=== PATIENT | female | born 1975 | race Caucasian/White ===

== ENCOUNTER 2016-08-28 12:14 | Inpatient (IN) | payer OTHER ==
[~2016-08-28] VITALS: Ht 160 cm; Wt 72.5 kg
[~2016-08-28 12:14] MED LIST: LISI20TA11 PO; POTA20TA96 PO; PRED5 PO; TACR1CAP26 PO
[2016-08-28 12:18] VITALS: Ht 160 cm; Wt 72.5 kg
[2016-08-28] MEDS ORDERED: SODIUM CHLORIDE 0.9% 1L BAG IV* STA (12:31)
[2016-08-28] MEDS ORDERED: CEFEPIME 2GM/50 ML (PMX) 50 ML IVPB STA (12:31)
[2016-08-28] MEDS ORDERED: VANCOMYCIN 1 GM (PMX) 250 ML IVPB ONE (13:00)
[2016-08-28 13:08] LABS: HEMATOCRIT 34.2 % (37.0-47.0); HEMOGLOBIN 11.5 g/dl (12.0-16.0); MEAN CORPUSCULAR HEMOGLOBIN 29.1 pg (29.0-33.0); MEAN CORPUSCULAR HGB CONC 33.7 g/dl (32.0-37.0); MEAN CORPUSCULAR VOLUME 86.4 fl (82.0-101.0); MEAN PLATELET VOLUME 7.8 fl (7.4-10.4); PLATELET COUNT 421 10^3/UL (140-440); RED BLOOD COUNT 3.96 10^6/ul (4.20-5.40); UNCORRECTED WBC 3.9 10^3/ul (4.8-10.8); WHITE BLOOD COUNT 3.9 10^3/ul (4.8-10.8)
[2016-08-28 13:10] LABS: CONDITION 1; LH ANALYZER COMMENTS 1; SUSPECT 1
[2016-08-28 13:18] LABS: INR 0.91; PROTIME 12.2 Sec (12.2-14.2)
[2016-08-28 13:19] LABS: CHLORIDE 99 mmol/L (97-110); PARTIAL THROMBOPLASTIN TIME 31.1 Sec (25.0-35.0)
[2016-08-28 13:20] LABS: ALBUMIN 4.3 g/dl (3.3-4.9); POTASSIUM 3.6 mmol/L (3.5-5.1); SODIUM 144 mmol/L (135-144)
[2016-08-28 13:23] LABS: ALANINE AMINOTRANSFERASE 51 IU/L (13-69); ALBUMIN/GLOBULIN RATIO 0.95; ALKALINE PHOSPHATASE 83 IU/L (42-121); ANION GAP 18 (8-16); ASPARTATE AMINO TRANSFERASE 41 IU/L (15-46); BLOOD UREA NITROGEN 11 mg/dl (7-20); CALCIUM 9.5 mg/dl (8.4-10.2); CARBON DIOXIDE 31 mmol/L (21-31); CREATININE 0.61 mg/dl (0.44-1.00); GLUCOSE 93 mg/dl (70-220); TOTAL PROTEIN 8.8 g/dl (6.1-8.1)
[2016-08-28 13:25] LABS: BILIRUBIN,INDIRECT 0.2 mg/dl (0-1.1); BILIRUBIN,TOTAL 0.2 mg/dl (0.2-1.3)
--- NOTE | 2016-08-28 13:25 | RADRPT ---
PROCEDURE: XR Chest AP portable CLINICAL INDICATION: Possible sepsis TECHNIQUE: An AP portable radiograph of the chest was submitted. COMPARISON: None. FINDINGS: Support Hardware: A left subclavian Port-A-Cath is evident with the tip projecting through the right atrium. Cardiovascular: The cardiovascular silhouette appears unremarkable. Lung Dean: The lung dean appear clear with no nodule, alveolar infiltrate, for a interstitial pr ominence evident. Pleural Spaces: No pneumothorax or pleural effusion is identified. Osseous Structures: The osseous structures appear intact. Soft Tissues: The soft tissues appear unremarkable. IMPRESSION: 1. A left subclavian Port-A-Cath is evident with the tip projecting to the right atrium. 2. Otherwise, unremarkable portable chest. Physician Miguel Date Time Electronically viewed and signed by Physician Miguel on 08/28/2016 13:25 /
[2016-08-28 13:36] LABS: TROPONIN-I < 0.012 ng/ml (0.00-0.12)
[2016-08-28 13:41] LABS: LYMPHOCYTES # 1.2 10^3/ul (0.8-2.9); MONOCYTE # 0.1 10^3/ul (0.3-0.9); NEUTROPHIL # 1.9 10^3/ul (1.6-7.5)
[2016-08-28 13:42] LABS: MYELOCYTES # 0.1
[2016-08-28] MEDS ORDERED: CEPH750C6 PO (13:53)
[2016-08-28] MEDS ORDERED: ONDANSETRON 4 MG INJ IV PRN ×2 (14:30→16:00)
[2016-08-28] MEDS ORDERED: ACETAMINOPHEN 325 MG TAB PO PRN ×2 (14:30→16:00)
[2016-08-28 15:45] VITALS: TEMP 98.1
[2016-08-28 15:48] LABS: ADD UMIC YES; URINE BILIRUBIN (Dip) NEGATIVE (NEGATIVE); URINE BLOOD (Dip) 3+ (NEGATIVE); URINE GLUCOSE (Dip) NEGATIVE (NEGATIVE); URINE KETONES (Dip) NEGATIVE (NEGATIVE); URINE LEUKOCYTE ESTERASE (Dip) NEGATIVE (NEGATIVE); URINE NITRITE (Dip) NEGATIVE (NEGATIVE); URINE TOTAL PROTEIN (Dip) NEGATIVE (NEGATIVE); URINE UROBILINOGEN (Dip) 0.2 E.U./dL (0.1-1.0)
[2016-08-28] MEDS ORDERED: morphine 2 MG INJ IV PRN (16:00)
[2016-08-28] MEDS ORDERED: DOCUSATE SODIUM 100 MG CAP PO PRN (16:00)
[2016-08-28] MEDS ORDERED: ACETAMINOPHEN 650 MG SUPP PR PRN (16:00)
[2016-08-28] MEDS ORDERED: HYDROCODONE/APAP (5/325) TAB PO PRN (16:00)
[2016-08-28] MEDS ORDERED: NACL 0.9% 3 ML SYG IV SCH (16:00)
[2016-08-28] MEDS ORDERED: MAGNESIUM HYDROXIDE 30ML CUP PO PRN (16:00)
[2016-08-28] MEDS ORDERED: BISACODYL 10 MG SUPP PR PRN (16:00)
[2016-08-28 16:02] LABS: URINE COLOR PINK (YELLOW)
[2016-08-28 16:03] LABS: BACTERIA,URINE MODERATE; SQUAMOUS EPITHELIAL CELL,UR MODERATE; URINE RBCS >50 /HPF (0)
--- NOTE | 2016-08-28 16:35 | HP ---
DATE OF ADMISSION: 08/28/2016 CHIEF COMPLAINT: Left upper chest Port-A-Cath infection. HISTORY OF PRESENT ILLNESS: This is a 41-year-old female with recently diagnosed right breast cance r in June of 2016, who was receiving chemotherapy and does see her oncologist, Dr. Villalobos as outpatient, who came to [facility] due to her left side chest Port-A-Cath. The p atient of note also has a history of lupus. The patient did state that she noticed some erythema an d swelling on her left upper chest 2 weeks ago. She did state that however, it got worse, and that about a week ago it started to have drainage with pus. This morning, she noticed that there was trevor inage as well as a hole in her left upper chest which prompted her to come to [facility] for further evaluation. On further examination, patient was seen with an infected left upper chest area with a notable sized laceration, roughly 1 inch in length. There was dried whitish to y ellow pus seen in the area as well with erythema around markings. No white count was noted, however , patient did report having subjective fevers and chills while she was at home with highest temp marylu ng at 102. She denied any other chest pain or shortness of breath or nausea or vomiting associated with it. She does feel some pain on palpation on the area, however. Currently, the patient remains afebrile. She remains normotensive with no evidence of shock. We will evaluate her for the aforem entioned issues. MEDICAL/SURGICAL HISTORY: 1. Right breast cancer. 2. Lupus. SOCIAL HISTORY: The patient denies any cigarette smoking, alcohol consumption or illicit drug use. ALLERGIES: NO KNOWN ALLERGIES. FAMILY HISTORY: Patient does report her mother had breast cancer. REVIEW OF SYSTEMS: A 12-point review of systems obtained and entirely negative except that mentione d in history of present illness. PHYSICAL EXAMINATION: VITAL SIGNS: Temperature is 97.1, pulse 76, respiratory rate 18, blood pressure 97/71 and pulse oxi metry 99% on room air. GENERAL: This is a 41-year-old female, appears stated age with no apparent distress noted. EYES: Pupils equal, round and reactive to light. Anicteric sclerae. NECK: Supple, nontender. No JVD. CARDIAC: S1, S2 auscultated, regular rate. PULMONARY: Clear to auscultation bilaterally. No wheezing or rhonchi. ABDOMEN: Soft, nontender, nondistended. EXTREMITIES: There is no pitting edema bilateral lower extremities. SKIN: There is noted left upper chest wound on site where Port-A-Cath was with noted dryish yellow to white pus seen around area with roughly 1 inch laceration seen in the area. NEUROLOGIC: Alert and oriented x3. LABORATORY DATA: WBC 2.9, hemoglobin 11.5, hematocrit is 34.2, platelets are 421. Sodium 144, pota ssium 3.6, BUN is 11, creatinine 0.61. IMAGING: Chest x-ray done on 08/28/2016 did show left subclavian Port-A-Cath evident with the tip p rojecting into the right atrium, otherwise unremarkable portable chest. IMPRESSION AND PLAN: 1. Infected left subclavian Port-A-Cath. I will get wound consult to follow. Radiology has been m raymond aware. After discussion, patient will need to have ID consult and need any infectious process d ealt with prior to reinsertion of a new Port-A-Cath. Will continue on broad spectrum antibiotics fo r now. Will await ID consultation. 2. History of breast cancer. Patient does report she follows up with Dr. Villalobos as outpatient. Patient reports after next chemotherapy session on 09/02/2016 patient to follow up with outpatient oncologist. 3. History of lupus. The patient does report that she follows up with a snack bar attendant, Dr. Glass as outpatient. No active issue at this time. Will resume her prednisone. 4. Deep venous thrombosis prophylaxis: SCDs. ADMISSION PROCESS TIME: 40 minutes. Discussed plan of care with Dr. Mujica. Dictated By: MUKUND DORSEY DIGITAL COURT REPORTER for WAGNER MUJICA MD RR/NTS Conf#: [id number] DID#: [id number]
[2016-08-28] MEDS: CEFTRIAXONE 2 GM/50 ML (PMX) 50 ML IVPB SCH ×2 (17:00→20:30)
--- NOTE | 2016-08-28 17:20 | ERA ---
ER Documentation Chief Complaint Date/Time DATE: 08/28/16 TIME: 17:18 Chief Complaint left upper chest pain from port a cath. not infusing per pt. needs chemo HPI Patient is a 41-year-old female with lupus and breast cancer who presents with an infection. She says that she has an infected port in her left chest wall. She has had chills and fevers. She has had this for the past 1.5 weeks. She is on chemotherapy for her breast cancer. She does not receive radiation. Her next chemotherapy is on September 02. Her last chemotherapy was August 12. She does not know the name of her primary doctor. ROS All systems reviewed and are negative except as per history of present illness. Medications Home Meds Reported Medications Cephalexin* (Cephalexin*) 750 Mg Capsule, 750 MG PO BID for 10 Days, #21 CAP 08/28/16 Potassium Chloride* (Potassium Chloride*) 20 Meq Tablet.er, 40 MEQ PO DAILY, TAB.SA 07/15/16 Tacrolimus* (Prograf*) 1 Mg Capsule, 1 MG PO Q12, CAP 07/15/16 Prednisone* (Prednisone*) 5 Mg Tab, 5 MG PO DAILY, TAB 07/15/16 Discontinued Reported Medications Lisinopril* (Lisinopril*) 20 Mg Tablet, 20 MG PO DAILY, #30 TAB 07/15/16 Allergies Allergies: Coded Allergies: No Known Allergy (Unverified , 07/15/16) PMhx/Soc History of Surgery: Yes (RT BREAST BX) Anesthesia Reaction: No Hx Neurological Disorder: No Hx Respiratory Disorders: No Hx Cardiac Disorders: No Hx Psychiatric Problems: No Hx Miscellaneous Medical Probl: Yes (LUPUS) Hx Alcohol Use: No Hx Substance Use: No Hx Tobacco Use: No Smoking Status: Never smoker FmHx Family History: diabetes Physical Exam Vitals Vital Signs Date Time Temp Pulse Resp B/P Pulse Ox O2 Delivery O2 Flow Rate FiO2 08/28/16 13:54 96 18 97/71 99 Room Air 08/28/16 12:45 Nasal Cannula 2 08/28/16 12:18 97.1 75 20 113/74 98 Physical Exam Const: No acute distress Head: Atraumatic Eyes: Normal Conjunctiva ENT: Normal External Ears, Nose and Mouth. Neck: Full range of motion..~ No meningismus. Resp: Clear to auscultation bilaterally Cardio: Regular rate and rhythm, no murmurs Abd: Soft, non tender, non distended. Normal bowel sounds Skin: Erosion of the skin over the port with redness surrounding consistent with infection Back: No midline or flank tenderness Ext: No cyanosis, or edema Neur: Awake and alert Psych: Normal Mood and Affect Result Diagram: 08/28/16 1250 08/28/16 1240 Results 24 hrs Laboratory Tests Test 08/28/16 12:40 08/28/16 12:50 08/28/16 15:00 08/28/16 16:05 Activated Partial Thromboplast Time 31.1Sec Alanine Aminotransferase (ALT/SGPT) 51IU/L Albumin 4.3g/dl Albumin/Globulin Ratio 0.95 Alkaline Phosphatase 83IU/L Anion Gap 18 Aspartate Amino Transf (AST/SGOT) 41IU/L Blood Urea Nitrogen 11mg/dl Calcium Level 9.5mg/dl Carbon Dioxide Level 31mmol/L Chloride Level 99mmol/L Creatinine 0.61mg/dl Direct Bilirubin 0.00mg/dl Globulin 4.50g/dl Glucose Level 93mg/dl INR International Normalized Ratio 0.91 Indirect Bilirubin 0.2mg/dl Lactic Acid Level 1.1mmol/L 0.6mmol/L Potassium Level 3.6mmol/L Prothrombin Time 12.2Sec Prothrombin Time Ratio 1.0 Sodium Level 144mmol/L Total Bilirubin 0.2mg/dl Total Protein 8.8g/dl Troponin I < 0.012ng/ml Band Neutrophils % 12.0% Basophils # 0.010^3/ul Basophils % 1.0% Differential Comment MANUAL DIFF Eosinophils # 0.010^3/ul Eosinophils % 1.0% Hematocrit 34.2% Hemoglobin 11.5g/dl Lymphocytes # 1.210^3/ul Lymphocytes % 30.0% Mean Corpuscular Hemoglobin 29.1pg Mean Corpuscular Hemoglobin Concent 33.7g/dl Mean Corpuscular Volume 86.4fl Mean Platelet Volume 7.8fl Metamyelocytes # 0.0 Metamyelocytes % 1.0% Monocytes # 0.110^3/ul Monocytes % 2.0% Myelocytes # 0.1 Myelocytes % 2.0% Neutrophils # 1.910^3/ul Neutrophils % 48.0% Nucleated Red Blood Cells # 10^3/ul Nucleated Red Blood Cells % /100WBC Platelet Count 48083^3/UL Promyelocytes # 0.1 Promyelocytes % 3.0% Red Blood Count 3.9610^6/ul Red Cell Distribution Width 13.0% White Blood Count 3.910^3/ul Urine Bacteria MODERATE Urine Bilirubin NEGATIVE Urine Clarity HAZY Urine Color PINK Urine Glucose NEGATIVE% Urine Hemoglobin 3+ Urine Ketones NEGATIVE Urine Leukocyte Esterase NEGATIVE Urine Microscopic RBC >50/HPF Urine Microscopic WBC 2-5/HPF Urine Nitrite NEGATIVE Urine Specific [place] 1.010 Urine Squamous Epithelial Cells MODERATE Urine Total Protein NEGATIVE Urine Urobilinogen 0.2 E.U./dL Urine pH 7.0 Current Medications Medications (Trade) Dose Ordered Sig/Dom Route PRN Reason Start Time Stop Time Status Last Admin Dose Admin Sodium Chloride 2250 ml 2,250 ml BOLUS OVER 2 HOURS STAT IV* 08/28/16 12:31 08/28/16 12:33 DC 08/28/16 13:24 Cefepime HCl 50 ml @ 100 mls/hr ONCE STAT IVPB 08/28/16 12:31 08/28/16 13:00 DC 08/28/16 13:22 Vancomycin HCl (Vancocin) 250 ml @ 125 mls/hr ONCE ONCE IVPB 08/28/16 13:00 08/28/16 14:59 08/28/16 13:26 Ondansetron HCl (Zofran Inj) 4 mg BRIDGE ORDER PRN IV NAUSEA AND/OR VOMITING 08/28/16 14:30 08/28/16 16:07 DC Acetaminophen (Tylenol Tab) 650 mg ER BRIDGE PRN PO MILD PAIN/FEVER 08/28/16 14:30 08/28/16 16:07 DC IV Flush (NS 3 ml) 3 ml PER PROTOCOL IV 08/28/16 16:00 Ondansetron HCl (Zofran Inj) 4 mg Q6H PRN IV NAUSEA AND/OR VOMITING 08/28/16 16:00 Acetaminophen (Tylenol Tab) 650 mg Q6H PRN PO PAIN LEVEL 1-3 OR FEVER 08/28/16 16:00 Acetaminophen (Tylenol Supp) 650 mg Q6H PRN ID PAIN LEVEL 1-3 OR FEVER 08/28/16 16:00 Acetaminophen/ Hydrocodone Bitart ([place] (5/325)) 1 tab Q6H PRN PO MODERATE PAIN LEVEL 4-6 08/28/16 16:00 Acetaminophen/ Hydrocodone Bitart ([place] (5/325)) 2 tab Q6H PRN PO SEVERE PAIN LEVEL 7-10 08/28/16 16:00 Morphine Sulfate (morphine) 2 mg Q4H PRN IV SEVERE PAIN LEVEL 7-10 08/28/16 16:00 Docusate Sodium (Colace) 100 mg Q12H PRN PO CONSTIPATION 08/28/16 16:00 Magnesium Hydroxide (Milk Of Mag) 30 ml DAILY PRN PO CONSTIPATION 08/28/16 16:00 Bisacodyl (Dulcolax Supp) 10 mg DAILY PRN ID CONSTIPATION 08/28/16 16:00 Famotidine (Pepcid) 20 mg Q12 PO 08/28/16 21:00 Prednisone (Prednisone) 5 mg DAILY PO 08/29/16 09:00 Tacrolimus 1 mg 1 mg Q12 PO 08/28/16 21:00 Ceftriaxone Sodium (Rocephin) 50 ml @ 100 mls/hr Q24H IVPB 08/28/16 17:00 Procedures/MDM EKG read by me: Rate/Rhythm: Regular rate and rhythm at a normal rate Intervals: Normal Impression: No evidence of ischemia or arrhythmia Chest x-ray shows no pneumonia per radiology. Admit MDM: Patient's infectious symptoms have not stabilized and the patient is at risk of rapid decompensation. The patient will be admitted for careful hydration, antibiotic therapy, and infectious source control. Severe Sepsis criteria: Infectious source: Infected port End organ damage indicated by: No end organ damage at this time Sepsis Management: Time of recognition of sepsis: Upon arrival Within 3 hours of recognition: Blood cultures x 2 before broad-spectrum antibiotics: Yes 30 ml/kg NS bolus Completed Initial lactate 1.1 Repeat lactate 0.6 Time of recognition of septic shock: No septic shock Septic Shock Assessment: Any lactic acid > 4.0 No Persistent hypotension (SBP < 90 or 40 mmHg drop, MAP < 65) despite 30 mL/kg IV fluid bolus No Volume Re-assessment for Septic Shock (post 30 ml/kg bolus): No septic shock at this time Persistent Hypotension Treatment: Comfort care No Central line Not Required Vasopressor started Not required I considered further perfusion assessment with CVP measurement, SCVO2, bedside ultrasound volume assessment, passive leg raise, trial of further fluid bolus. And proceeded with 30 ml/kg fluid bolus of NSS, broad spectrum antibiotics, and admission. I also spoke with Dr. Brewster and asked him to remove the infected port. Accepting Care Team Current data and ongoing care discussed. Admitting Physician: Dr. Mujica Receiver Stocker(s): Dr. Brewster Outstanding Data: Culture results Critical Care: Critical care time 35 minutes excluding all billable procedures Emergent fluid management while maintaining close respiratory support. Provision of immediate and broad-spectrum antibiotic therapy. Simultaneous assessment for possible sources in order to direct targeted therapy. Consideration for invasive and chemical support to prevent cardiopulmonary collapse. Departure Diagnosis: Primary Impression: Sepsis Qualified Code: A41.9 - Sepsis, due to unspecified organism Additional Impressions: Catheter-related bloodstream infection Qualified Code: T80.211A - Catheter-related bloodstream infection, initial encounter Leukopenia Qualified Code: D70.9 - Neutropenia, unspecified type Anemia Qualified Code: D64.9 - Anemia, unspecified type Bandemia Condition: JAQUELIN Maza MD Aug 28, 2016 17:20
--- NOTE | 2016-08-28 17:35 | CONS ---
DATE OF ADMISSION: 08/28/2016 DATE OF CONSULTATION: 08/28/2016 TYPE OF CONSULTATION: Infectious Disease. REASON FOR CONSULTATION: Antibiotic management. HISTORY OF PRESENT ILLNESS: Niya Lund is a pleasant 41-year-old [place] Citizen Of [place] female with a number of problems who comes in with infected left upper chest Port-A-Cath. Her problems include: 1. History of systemic lupus erythematosus. 2. Recently diagnosed breast cancer in June 2016. She had a Port-A-Cath placed in the left upp er chest and is receiving chemotherapy from Dr. Villalobos as an outpatient. She came to the emerge ncy room with left-sided chest pain and with redness of the area of the Port-A-Cath. She noticed so me erythema and swelling of left upper chest about 2 weeks ago. It got worse, however, and started to drain pus about a week ago. She noticed that there was some drainage as well as a hole in the le ft chest which prompted her to come to the emergency room at [facility]. She had a notable size laceration, roughly 1 inch in length. It was dried, white to yellow pus in the area with eryt linda. On admission, her white count was 3.9, H and H 11.5 and 34.2, platelet count of 421,000. BUN and creatinine 11/0.61. Chest x-ray, left subclavian Port-A-Cath is evident with the tip projectin g to the right atrium, otherwise unremarkable. PAST MEDICAL HISTORY: Operations as outlined. FAMILY HISTORY: Noncontributory. SOCIAL HISTORY: She does not smoke, drink, or abuse drugs. FAMILY HISTORY: Her mother had breast cancer as well. ALLERGIES: NONE TO PENICILLIN, SULFA, OR FOODS. MEDICATIONS: Include 1. Gabapentin. 2. Prednisone. 3. Plaquenil for her lupus. PHYSICAL EXAMINATION: GENERAL: The patient is a well-developed, well-nourished 41-year-old female, who is alert, responsi ve, in no acute distress. VITAL SIGNS: Stable. She is afebrile. SKIN: Left upper chest wound on the site where the Port-A-Cath was placed. HEENT: Within normal limits. NECK: Supple. LYMPH NODES: None palpable. CHEST: Decreased breath sounds at the bases. HEART: Without murmur or gallop. ABDOMEN: Soft, nontender, without organosplenomegaly, no masses. EXTREMITIES: Without cyanosis, clubbing, or edema. RECTAL AND GENITAL: Deferred. NEUROLOGIC: No focal neurological abnormalities. ANCILLARY LABORATORY DATA: White count was 2.9, H and H 11.5 and 34.2, platelet count 421,000. BUN and creatinine 11/0.61. IMPRESSION AND PLAN: The patient has an infected left subclavian Port-A-Cath. She needs blood cult ures which were done, and she was begun on ceftriaxone and vancomycin. She is also on Prograf 1 mg q. 12. Blood cultures have been drawn. C. difficile toxin has been ordered. Stool culture and uri ne cultures have been ordered, so she is essentially covered, and she will have her Port-A-Cath dashawn dionte I believe by Dr. Brewster and then replaced at a later time when she needs chemotherapy. I want to thank the hospitalist for asking me to see this aishwarya lady in consultation. Dictated By: DEMETRI SZYMANSKI MD, JD/ANTWON Conf#: [id number] DID#: [id number]
[2016-08-28 19:41] VITALS: BP 103/57; RESP 20
[2016-08-28] MEDS: FAMOTIDINE 20 MG TAB PO SCH (22:50)
[2016-08-28] MEDS: TACROLIMUS 1 MG CAP PO SCH (22:50)
[2016-08-29] VITALS (11 sets, daily range): BP systolic 93–127; BP diastolic 54–71; PULSE 66–99; RESP 16–20
[2016-08-29 07:34] LABS: CREATININE 0.57 mg/dl (0.44-1.00)
[2016-08-29 07:35] LABS: ALBUMIN/GLOBULIN RATIO 0.9; BILIRUBIN,INDIRECT 0.1 mg/dl (0-1.1); BILIRUBIN,TOTAL 0.1 mg/dl (0.2-1.3); CALCIUM 8.4 mg/dl (8.4-10.2); PHOSPHORUS 3.9 mg/dl (2.5-4.9); T3 UPTAKE 31.9 % (23.5-40.5); TOTAL PROTEIN 6.3 g/dl (6.1-8.1)
[2016-08-29 07:36] LABS: MAGNESIUM 2.1 mg/dl (1.7-2.5)
[2016-08-29 07:49] LABS: POTASSIUM 3.5 mmol/L (3.5-5.1)
[2016-08-29 09:26] LABS: THYROID STIMULATING HORMONE 1.09 MIU/L (0.465-4.680)
[2016-08-29] MEDS: TACROLIMUS 1 MG CAP PO SCH ×2 (09:26→20:30)
[2016-08-29] MEDS: FAMOTIDINE 20 MG TAB PO SCH ×2 (09:26→20:30)
[2016-08-29] MEDS: predniSONE 5 MG TAB PO SCH (09:26)
[2016-08-29] MEDS ORDERED: MIDAZOLAM 1 MG/ML 2 ML INJ ONE (13:42)
[2016-08-29] MEDS ORDERED: LIDOCAINE 1% (MDV) 20 ML INJ ONE (13:42)
[2016-08-29] MEDS ORDERED: FENTAnyl 50 MCG/ML VIAL ONE (13:42)
--- NOTE | 2016-08-29 14:33 | PN ---
Date/Time of Note Date/Time of Note DATE: 08/29/16 TIME: 14:30 Assessment/Plan VTE Prophylaxis VTE Prophylaxis Intervention: SCD's Lines/Catheters IV [facility] Saline Lock Urinary Cath still in place: No Assessment/Plan Chief Complaint/Hosp Course Assessment and plan 1. Infected left subclavian Port-A-Cath. Wound care nurse to follow.. Radiology has been made aware. Continue antibiotics per ID. Await blood cultures.. 2. History of breast cancer. Patient does report she follows up with Dr. Villalobos as outpatient. Patient reports after next chemotherapy session on patient to follow up with outpatient oncologist. 3. History of lupus. The patient does report that she follows up with a ship construction teacher, Dr. Glass as outpatient. No active issue at this time. Will resume her prednisone. 4. Deep venous thrombosis prophylaxis: SCDs. Disposition and plan: Tentative plan for removal of infected Port-A-Cath on left upper chest. Continue inpatient monitoring Discussed plan of care with Dr. Mujica Problems: Subjective 24 Hr Interval Summary Free Text/Dictation No apparent distress noted at this time. Exam/Review of Systems Vital Signs Vitals Vital Signs Date Time Temp Pulse Resp B/P Pulse Ox O2 Delivery O2 Flow Rate FiO2 08/29/16 07:37 97.9 80 16 93/54 100 08/28/16 15:45 Room Air 08/28/16 12:45 2 Intake and Output 08/28/16 08/28/16 08/29/16 15:00 23:00 07:00 Intake Total 50 ml 400 ml Balance 50 ml 400 ml Exam General: No acute signs or symptoms of distress Eyes: pupils equal round, Anicteric sclera Neck: Supple nontender, no JVD Cardiac: S1, S2 auscultated, regular rhythm and rate Pulmonary: No coarse rhonchi or breathing auscultated GI: Abdomen soft nontender nondistended, bowel sounds active Extremities: No edema bilateral lower extremities Skin: Noted with infected left upper chest Port-A-Cath site Neurologic: Alert to person place and time and situation Results Result Diagram: 08/28/16 1250 08/29/16 0500 Results 24 hrs Laboratory Tests Test 08/28/16 15:00 08/28/16 16:05 08/28/16 19:25 08/29/16 05:00 Urine Bacteria MODERATE Urine Bilirubin NEGATIVE Urine Clarity HAZY Urine Color PINK Urine Glucose NEGATIVE Urine Hemoglobin 3+ H Urine Ketones NEGATIVE Urine Leukocyte Esterase NEGATIVE Urine Microscopic RBC >50 Urine Microscopic WBC 2-5 Urine Nitrite NEGATIVE Urine Specific [place] 1.010 Urine Squamous Epithelial Cells MODERATE Urine Total Protein NEGATIVE Urine Urobilinogen 0.2 E.U./dL Urine pH 7.0 Lactic Acid Level 0.6 < 0.5 L Alanine Aminotransferase (ALT/SGPT) 42 Albumin 3.0 #L Albumin/Globulin Ratio 0.90 Alkaline Phosphatase 64 Anion Gap 15 Aspartate Amino Transf (AST/SGOT) 27 Blood Urea Nitrogen 8 Calcium Level 8.4 Carbon Dioxide Level 25 Chloride Level 107 Cholesterol Level 191 Cholesterol/HDL Ratio 9.0 Creatinine 0.57 Direct Bilirubin 0.00 Free Thyroxine Index 2.87 Globulin 3.30 H Glucose Level 82 HDL Cholesterol 21 L Hemoglobin A1c 5.9 Indirect Bilirubin 0.1 LDL Cholesterol, Calculated 140 Magnesium Level 2.1 Phosphorus Level 3.9 Potassium Level 3.5 Sodium Level 143 Thyroid Stimulating Hormone (TSH) 1.090 Thyroxine (T4) 9.0 Total Bilirubin 0.1 L Total Protein 6.3 # Triglycerides Level 152 H Triiodothyronine (T3) Uptake 31.9 Medications Medications Current Medications Ondansetron HCl (Zofran Inj) 4 mg Q6H PRN IV NAUSEA AND/OR VOMITING; Start at 16:00 Acetaminophen (Tylenol Tab) 650 mg Q6H PRN PO PAIN LEVEL 1-3 OR FEVER; Start at 16:00 Acetaminophen (Tylenol Supp) 650 mg Q6H PRN [place] PAIN LEVEL 1-3 OR FEVER; Start 08/28/16 at 16:00 Acetaminophen/ Hydrocodone Bitart ([place] (5/325)) 1 tab Q6H PRN PO MODERATE PAIN LEVEL 4-6; Start 08/28/16 at 16:00 Acetaminophen/ Hydrocodone Bitart ([place] (5/325)) 2 tab Q6H PRN PO SEVERE PAIN LEVEL 7-10; Start 08/28/16 at 16:00 Morphine Sulfate (morphine) 2 mg Q4H PRN IV SEVERE PAIN LEVEL 7-10; Start 08/28 at 16:00 Docusate Sodium (Colace) 100 mg Q12H PRN PO CONSTIPATION; Start 1/20/17 at 16: 00 Magnesium Hydroxide (Milk Of Mag) 30 ml DAILY PRN PO CONSTIPATION; Start at 16:00 Bisacodyl (Dulcolax Supp) 10 mg DAILY PRN AL CONSTIPATION; Start 08/28/16 at 16 :00 Famotidine (Pepcid) 20 mg Q12 PO Last administered on 08/29/16 09:26; Admin Dose 20 MG; Start 08/28/16 at 21:00 Prednisone (Prednisone) 5 mg DAILY PO Last administered on 08/29/16 09:26; Admin Dose 5 MG; Start 08/29/16 at 09:00 Tacrolimus 1 mg 1 mg Q12 PO Last administered on 08/29/16 09:26; Admin Dose 1 MG; Start 08/28/16 at 21:00 Ceftriaxone Sodium (Rocephin) 50 ml @ 100 mls/hr Q24H IVPB Last administered on 08/28/16 20:30; Admin Dose 100 MLS/HR; Start 08/28/16 at 17:00 MUKUND DORSEY Aug 29, 2016 14:33
[2016-08-29] MEDS ORDERED: LIDOCAINE 1%/EPI 30 ML INJ INJ ONE (17:00)
[2016-08-29] MEDS ORDERED: VANCOMYCIN IV PER PHARMACY XX SCH (17:30)
[2016-08-29] MEDS ORDERED: VANCOMYCIN 1.5 GM in SOD CHLORIDE 0.9% 250 ML IVPB ONE ×2 (18:00→21:00)
[2016-08-29] MEDS: CEFTRIAXONE 2 GM/50 ML (PMX) 50 ML IVPB SCH (20:29)
[2016-08-29] MEDS: HYDROCODONE/APAP (5/325) TAB PO PRN (20:30)
--- NOTE | 2016-08-29 21:11 | PN ---
DATE: 08/29/2016 SUBJECTIVE: The patient is alert, in no distress. No fevers. Vital signs stable. MICROBIOLOGY: Blood cultures pending, preliminary negative. Urine culture negative. Stool for C d iff negative. ANTIMICROBIALS She is on: 1. Rocephin IV. 2. Vancomycin. PHYSICAL EXAMINATION GENERAL: Well-developed, ill-appearing, middle-aged woman who is alert, in no distress. HEENT: Head atraumatic, normocephalic. Sclerae are anicteric. Buccal mucosa pink. NECK: Supple, trachea midline. CHEST: Rise symmetrical. Breath sounds clear, diminished to bases. HEART: S1, S2. ABDOMEN: Soft, bowel tones present. EXTREMITIES: Without cyanosis. ASSESSMENT 1. Left upper chest Port-A-Cath cellulitis. 2. Breast cancer diagnosed in June 2016. 3. History of systemic lupus erythematous. 4. Status post chemotherapy, possibly requiring more. PLAN: The patient remains stable. We will keep her on vancomycin and Rocephin. Wait for blood cul tures. She is scheduled for Port-A-Cath removal. We will send tip for culture. Dictated By: MARLON PETERS INFORMATION SYSTEMS ARCHITECT for DEMETRI MCCORMACK/ANTWON Conf#: [id number] DID#: [id number]
--- NOTE | 2016-08-30 00:50 | RADRPT ---
AMENDMENT: 08/31/2016 7:40:27 AM Uriah Queen M.D PROCEDURE: Portacatheter Removal CLINICAL INDICATION: Infected left central venous port PERFORMING PHYSICIAN: Uriah Queen MD TECHNIQUE: Fluoroscopy services during removal of left central venous port removal. The left ches t wall was prepped and draped in usual sterile fashion. 1% lidocaine as well as 1% lidocaine with e pinephrine was used for local anesthesia. Using a 11 blade scalpel, the ends of the cuff was remove d with blood dissection and the port was removed in its entirety. The fragments were sent for cultu re and sensitivity. The port pocket was irrigated with sterile normal saline and the port pocket wa s subsequently packed with sterile dressing. The patient had no immediate complications. Estimated blood loss: 2 cc Complications: None COMPARISON: None FINDINGS: Fluoroscopy services during removal of left central venous port. 3 intraoperative spot films were o btained at intermediate stages during this procedure and demonstrate removal of left central venous port. 0.2 minutes of fluoroscopy time were employed during this procedure. IMPRESSION: Successful removal of left chest wall port catheter. No retained fragments were seen post procedure . RPTAT: UU PROCEDURE: Fluoroscopy services CLINICAL INDICATION: Infected left central venous port TECHNIQUE: Fluoroscopy services during removal of left central venous port COMPARISON: None FINDINGS: Fluoroscopy services during removal of left central venous port. 3 intraoperative spot films were o btained at intermediate stages during this procedure and demonstrate removal of left central venous port 0.2 minutes of fluoroscopy time were employed during this procedure. IMPRESSION: Fluoroscopy services during removal of left central venous port RPTAT: UU .Uriah Queen MD, Date Time Electronically viewed and signed by .Uriah Queen MD, MD on 08/31/2016 07:40 .V/
[2016-08-30] MEDS: VANCOMYCIN 1 GM in NS 250 ML IVPB SCH ×2 (05:37→17:34)
[2016-08-30 07:23] VITALS: BP 99/53; RESP 14
[2016-08-30] MEDS: TACROLIMUS 1 MG CAP PO SCH ×2 (08:27→20:14)
[2016-08-30] MEDS: predniSONE 5 MG TAB PO SCH (08:27)
[2016-08-30] MEDS: FAMOTIDINE 20 MG TAB PO SCH ×2 (08:28→20:14)
[2016-08-30 09:39] LABS: BASOPHILS % 0.4 % (0.0-2.0); LYMPHOCYTES # 0.4 10^3/ul (0.8-2.9); LYMPHOCYTES % 13.1 % (15.0-51.0); MEAN CORPUSCULAR HEMOGLOBIN 29.4 pg (29.0-33.0); MEAN CORPUSCULAR HGB CONC 34.4 g/dl (32.0-37.0); MEAN CORPUSCULAR VOLUME 85.5 fl (82.0-101.0); MEAN PLATELET VOLUME 7.7 fl (7.4-10.4); MONOCYTE # 0.5 10^3/ul (0.3-0.9); MONOCYTES % 16.5 % (0.0-11.0); PLATELET COUNT 391 10^3/UL (140-440); RED BLOOD COUNT 3.39 10^6/ul (4.20-5.40); RED CELL DISTRIBUTION WIDTH 12.9 % (11.5-14.5); UNCORRECTED WBC 2.9 10^3/ul (4.8-10.8); WHITE BLOOD COUNT 2.9 10^3/ul (4.8-10.8)
[2016-08-30 09:43] LABS: CONDITION 1; LH ANALYZER COMMENTS 1
[2016-08-30 09:57] LABS: POTASSIUM 3.8 mmol/L (3.5-5.1)
[2016-08-30 10:00] LABS: CREATININE 0.59 mg/dl (0.44-1.00)
[2016-08-30 10:01] LABS: CALCIUM 8.8 mg/dl (8.4-10.2)
--- NOTE | 2016-08-30 12:05 | PN ---
Date/Time of Note Date/Time of Note DATE: 08/30/16 TIME: 12:03 Assessment/Plan VTE Prophylaxis VTE Prophylaxis Intervention: SCD's Lines/Catheters IV Catheter Type (from [facility]): Saline Lock Urinary Cath still in place: No Assessment/Plan Chief Complaint/Hosp Course Assessment and plan 1. Infected left subclavian Port-A-Cath. Wound care nurse to follow.. Radiology has been made aware. Continue antibiotics per ID. Await blood cultures.. 2. History of breast cancer. Patient does report she follows up with Dr. Villalobos as outpatient. Patient reports after next chemotherapy session on patient to follow up with outpatient oncologist. 3. History of lupus. The patient does report that she follows up with a director and professor, Dr. Glass as outpatient. No active issue at this time. Will resume her prednisone. 4. Deep venous thrombosis prophylaxis: SCDs. Disposition and plan: Port-A-Cath was removed on 08/29/2016. Follow-up blood cultures. Collaborate with ID for insertion of new port a cath Discussed plan of care with Dr. Mujica Problems: Subjective 24 Hr Interval Summary Free Text/Dictation Appears comfortable at present. No apparent distress Exam/Review of Systems Vital Signs Vitals Vital Signs Date Time Temp Pulse Resp B/P Pulse Ox O2 Delivery O2 Flow Rate FiO2 08/30/16 07:23 98.2 67 14 99/53 96 08/29/16 23:42 Room Air 08/28/16 12:45 2 Intake and Output 08/29/16 08/29/16 08/30/16 15:00 23:00 07:00 Intake Total 50 ml 852 ml Output Total 800 ml Balance 50 ml 52 ml Results Result Diagram: 08/30/16 0911 08/30/16 0911 Results 24 hrs Laboratory Tests Test 08/30/16 09:11 Anion Gap 12 Basophils # 0.0 Basophils % 0.4 Blood Urea Nitrogen 12 Calcium Level 8.8 Carbon Dioxide Level 25 Chloride Level 109 Creatinine 0.59 Eosinophils # 0.0 Eosinophils % 1.0 Glucose Level 90 Hematocrit 29.0 L Hemoglobin 10.0 L Lymphocytes # 0.4 L Lymphocytes % 13.1 L Mean Corpuscular Hemoglobin 29.4 Mean Corpuscular Hemoglobin Concent 34.4 Mean Corpuscular Volume 85.5 Mean Platelet Volume 7.7 Monocytes # 0.5 Monocytes % 16.5 H Neutrophils # 2.0 Neutrophils % 69.0 Nucleated Red Blood Cells # 0.0 Nucleated Red Blood Cells % 0.0 Platelet Count 391 Potassium Level 3.8 Red Blood Count 3.39 L Red Cell Distribution Width 12.9 Sodium Level 142 White Blood Count 2.9 #L Medications Medications Current Medications Ondansetron HCl (Zofran Inj) 4 mg Q6H PRN IV NAUSEA AND/OR VOMITING; Start at 16:00 Acetaminophen (Tylenol Tab) 650 mg Q6H PRN PO PAIN LEVEL 1-3 OR FEVER; Start at 16:00 Acetaminophen (Tylenol Supp) 650 mg Q6H PRN [place] PAIN LEVEL 1-3 OR FEVER; Start 08/28/16 at 16:00 Acetaminophen/ Hydrocodone Bitart ([place] (5/325)) 1 tab Q6H PRN PO MODERATE PAIN LEVEL 4-6 Last administered on 08/29/16 20:30; Admin Dose 1 TAB; Start at 16:00 Acetaminophen/ Hydrocodone Bitart ([place] (5/325)) 2 tab Q6H PRN PO SEVERE PAIN LEVEL 7-10; Start 08/28/16 at 16:00 Morphine Sulfate (morphine) 2 mg Q4H PRN IV SEVERE PAIN LEVEL 7-10; Start 08/28 at 16:00 Docusate Sodium (Colace) 100 mg Q12H PRN PO CONSTIPATION; Start 08/28/16 at 16: 00 Magnesium Hydroxide (Milk Of Mag) 30 ml DAILY PRN PO CONSTIPATION; Start at 16:00 Bisacodyl (Dulcolax Supp) 10 mg DAILY PRN [place] CONSTIPATION; Start 08/28/16 at 16 :00 Famotidine (Pepcid) 20 mg Q12 PO Last administered on 08/30/16 08:28; Admin Dose 20 MG; Start 08/28/16 at 21:00 Prednisone (Prednisone) 5 mg DAILY PO Last administered on 08/30/16 08:27; Admin Dose 5 MG; Start 08/29/16 at 09:00 Tacrolimus 1 mg 1 mg Q12 PO Last administered on 08/30/16 08:27; Admin Dose 1 MG; Start 08/28/16 at 21:00 Vancomycin HCl 250 ml @ 125 mls/hr Q12H IVPB Last administered on 08/30/16 05 :37; Admin Dose 125 MLS/HR; Start 08/30/16 at 06:00 Ceftriaxone Sodium (Rocephin) 50 ml @ 100 mls/hr Q24H IVPB Last administered on 08/29/16 20:29; Admin Dose 100 MLS/HR; Start 08/29/16 at 20:00 MUKUND DORSEY Aug 30, 2016 12:05
--- NOTE | 2016-08-30 14:54 | CONS ---
Date/Time of Note Date/Time of Note DATE: 08/30/16 TIME: 14:52 Assessment/Plan Assessment/Plan Chief Complaint/Hosp Course SUBJECTIVE: The patient is alert, in no distress. No fevers/n/v/d/dysuria MICROBIOLOGY: Blood cultures negative. Urine culture + GNR Stool for C diff negative. ANTIMICROBIALS 1. Rocephin IV. 2. Vancomycin. PHYSICAL EXAMINATION GENERAL: Well-developed, ill-appearing, middle-aged woman who is alert, in no distress. HEENT: Head atraumatic, normocephalic. Sclerae are anicteric. Buccal mucosa pink. NECK: Supple, trachea midline. CHEST: Rise symmetrical. Breath sounds clear, L chest wound packed, looks clean. HEART: S1, S2. ABDOMEN: Soft, bowel tones present. EXTREMITIES: Without cyanosis. ASSESSMENT 1. Left upper chest Port-A-Cath site cellulitis==> s/p removed. 2. Breast cancer diagnosed in June 2016. 3. History of systemic lupus erythematous. 4. Status post chemotherapy, possibly requiring more. 5. GNR UTI PLAN: The patient remains stable. Continue abx, f/u final cx, line holiday DW staff Problems: Consultation Date/Type/Reason Admit Date/Time Aug 28, 2016 at 14:29 Initial Consult Date Type of Consultation: ID Exam/Review of Systems Vital Signs Vitals Vital Signs Date Time Temp Pulse Resp B/P Pulse Ox O2 Delivery O2 Flow Rate FiO2 08/30/16 07:23 98.2 67 14 99/53 96 08/29/16 23:42 Room Air 08/28/16 12:45 2 Intake and Output 08/29/16 08/29/16 08/30/16 15:00 23:00 07:00 Intake Total 50 ml 852 ml Output Total 800 ml Balance 50 ml 52 ml Results Result Diagram: 08/30/16 0911 08/30/16 0911 Results 24 hrs Laboratory Tests Test 08/30/16 09:11 Anion Gap 12 Basophils # 0.0 Basophils % 0.4 Blood Urea Nitrogen 12 Calcium Level 8.8 Carbon Dioxide Level 25 Chloride Level 109 Creatinine 0.59 Eosinophils # 0.0 Eosinophils % 1.0 Glucose Level 90 Hematocrit 29.0 L Hemoglobin 10.0 L Lymphocytes # 0.4 L Lymphocytes % 13.1 L Mean Corpuscular Hemoglobin 29.4 Mean Corpuscular Hemoglobin Concent 34.4 Mean Corpuscular Volume 85.5 Mean Platelet Volume 7.7 Monocytes # 0.5 Monocytes % 16.5 H Neutrophils # 2.0 Neutrophils % 69.0 Nucleated Red Blood Cells # 0.0 Nucleated Red Blood Cells % 0.0 Platelet Count 391 Potassium Level 3.8 Red Blood Count 3.39 L Red Cell Distribution Width 12.9 Sodium Level 142 White Blood Count 2.9 #L Medications Medications Current Medications Ondansetron HCl (Zofran Inj) 4 mg Q6H PRN IV NAUSEA AND/OR VOMITING; Start at 16:00 Acetaminophen (Tylenol Tab) 650 mg Q6H PRN PO PAIN LEVEL 1-3 OR FEVER; Start at 16:00 Acetaminophen (Tylenol Supp) 650 mg Q6H PRN [place] PAIN LEVEL 1-3 OR FEVER; Start 08/28/16 at 16:00 Acetaminophen/ Hydrocodone Bitart ([place] (5/325)) 1 tab Q6H PRN PO MODERATE PAIN LEVEL 4-6 Last administered on 08/29/16 20:30; Admin Dose 1 TAB; Start at 16:00 Acetaminophen/ Hydrocodone Bitart ([place] (5/325)) 2 tab Q6H PRN PO SEVERE PAIN LEVEL 7-10; Start 08/28/16 at 16:00 Morphine Sulfate (morphine) 2 mg Q4H PRN IV SEVERE PAIN LEVEL 7-10; Start 08/28 at 16:00 Docusate Sodium (Colace) 100 mg Q12H PRN PO CONSTIPATION; Start 08/28/16 at 16: 00 Magnesium Hydroxide (Milk Of Mag) 30 ml DAILY PRN PO CONSTIPATION; Start at 16:00 Bisacodyl (Dulcolax Supp) 10 mg DAILY PRN [place] CONSTIPATION; Start 08/28/16 at 16 :00 Famotidine (Pepcid) 20 mg Q12 PO Last administered on 08/30/16 08:28; Admin Dose 20 MG; Start 08/28/16 at 21:00 Prednisone (Prednisone) 5 mg DAILY PO Last administered on 08/30/16 08:27; Admin Dose 5 MG; Start 08/29/16 at 09:00 Tacrolimus 1 mg 1 mg Q12 PO Last administered on 08/30/16 08:27; Admin Dose 1 MG; Start 08/28/16 at 21:00 Vancomycin HCl 250 ml @ 125 mls/hr Q12H IVPB Last administered on 08/30/16 05 :37; Admin Dose 125 MLS/HR; Start 08/30/16 at 06:00 Ceftriaxone Sodium (Rocephin) 50 ml @ 100 mls/hr Q24H IVPB Last administered on 08/29/16 20:29; Admin Dose 100 MLS/HR; Start 08/29/16 at 20:00 MARLON PETERS NP Aug 30, 2016 14:54
[2016-08-30 19:58] VITALS: BP 100/55; RESP 18
[2016-08-30] MEDS: CEFTRIAXONE 2 GM/50 ML (PMX) 50 ML IVPB SCH (20:13)
[2016-08-31 06:52] LABS: BASOPHILS % 0.6 % (0.0-2.0); EOSINOPHILS % 0.7 % (0.0-7.0); HEMATOCRIT 29.2 % (37.0-47.0); LYMPHOCYTES # 0.5 10^3/ul (0.8-2.9); LYMPHOCYTES % 16.5 % (15.0-51.0); MEAN CORPUSCULAR HEMOGLOBIN 29.8 pg (29.0-33.0); MEAN CORPUSCULAR HGB CONC 34.3 g/dl (32.0-37.0); MEAN CORPUSCULAR VOLUME 86.7 fl (82.0-101.0); MEAN PLATELET VOLUME 7.7 fl (7.4-10.4); MONOCYTE # 0.6 10^3/ul (0.3-0.9); MONOCYTES % 19.2 % (0.0-11.0); NEUTROPHIL # 1.9 10^3/ul (1.6-7.5); PLATELET COUNT 385 10^3/UL (140-440); RED BLOOD COUNT 3.37 10^6/ul (4.20-5.40); RED CELL DISTRIBUTION WIDTH 13.3 % (11.5-14.5)
[2016-08-31 06:58] LABS: CONDITION 1; LH ANALYZER COMMENTS 1
[2016-08-31 07:34] VITALS: BP 100/54; RESP 20
[2016-08-31] MEDS ORDERED: VANCOMYCIN 1.25 GM in SOD CHLORIDE 0.9% 250 ML IVPB SCH (08:00)
[2016-08-31] MEDS: TACROLIMUS 1 MG CAP PO SCH ×2 (08:36→20:40)
[2016-08-31] MEDS: FAMOTIDINE 20 MG TAB PO SCH ×2 (08:36→20:40)
[2016-08-31] MEDS: predniSONE 5 MG TAB PO SCH (08:36)
[2016-08-31 09:20] LABS: POTASSIUM 4.2 mmol/L (3.5-5.1)
[2016-08-31 09:22] LABS: CREATININE 0.58 mg/dl (0.44-1.00)
[2016-08-31 09:23] LABS: CALCIUM 9.1 mg/dl (8.4-10.2)
--- NOTE | 2016-08-31 15:05 | PN ---
Date/Time of Note Date/Time of Note DATE: 08/31/16 TIME: 15:03 Assessment/Plan VTE Prophylaxis VTE Prophylaxis Intervention: SCD's Lines/Catheters [facility] Saline Lock Urinary Cath still in place: No Assessment/Plan Chief Complaint/Hosp Course Assessment and plan 1. Infected left subclavian Port-A-Cath. Wound care nurse to follow.. Radiology has been made aware. Continue antibiotics per ID. 2. History of breast cancer. Patient does report she follows up with Dr. Villalobos as outpatient. Patient reports after next chemotherapy session on patient to follow up with outpatient oncologist. 3. History of lupus. The patient does report that she follows up with a motor bus driver, Dr. Glass as outpatient. No active issue at this time. Will resume her prednisone. 4. Deep venous thrombosis prophylaxis: SCDs. 5. UTI. Patient did have gram variable rods seen. Await final cultures. Continue with ID recommendations Disposition and plan: Line holiday per ID recommendations. Follow up on final urine culture. Continue on antibiotics. We will arrange for placement of Port-A- Cath once cleared by ID. Discussed plan of care with Dr. Orozco Problems: Subjective 24 Hr Interval Summary Free Text/Dictation Comfortable at present. No apparent distress Exam/Review of Systems Vital Signs Vitals Vital Signs Date Time Temp Pulse Resp B/P Pulse Ox O2 Delivery O2 Flow Rate FiO2 08/31/16 07:34 97.6 78 20 100/54 100 08/29/16 23:42 Room Air 08/28/16 12:45 2 Intake and Output 08/30/16 08/30/16 08/31/16 15:00 23:00 07:00 Intake Total 1510 ml 680 ml Balance 1510 ml 680 ml Exam General: No acute signs or symptoms of distress Eyes: pupils equal round, Anicteric sclera Neck: Supple nontender, no JVD Cardiac: S1, S2 auscultated, regular rhythm and rate Pulmonary: No coarse rhonchi or breathing auscultated GI: Abdomen soft nontender nondistended, bowel sounds active Extremities: No edema bilateral lower extremities Skin: Left upper chest wound clean dry and intact Neurologic: Alert to person place and time and situation Results Result Diagram: 08/31/16 0510 08/31/16 0510 Results 24 hrs Laboratory Tests Test 08/31/16 05:10 Anion Gap 14 Basophils # 0.0 Basophils % 0.6 Blood Urea Nitrogen 9 Calcium Level 9.1 Carbon Dioxide Level 24 Chloride Level 109 Creatinine 0.58 Eosinophils # 0.0 Eosinophils % 0.7 Glucose Level 81 Hematocrit 29.2 L Hemoglobin 10.0 L Lymphocytes # 0.5 L Lymphocytes % 16.5 Mean Corpuscular Hemoglobin 29.8 Mean Corpuscular Hemoglobin Concent 34.3 Mean Corpuscular Volume 86.7 Mean Platelet Volume 7.7 Monocytes # 0.6 Monocytes % 19.2 H Neutrophils # 1.9 Neutrophils % 63.0 Nucleated Red Blood Cells # 0.0 Nucleated Red Blood Cells % 0.0 Platelet Count 385 Potassium Level 4.2 Red Blood Count 3.37 L Red Cell Distribution Width 13.3 Sodium Level 143 Vancomycin Level Trough 9.1 L White Blood Count 3.0 L Medications Medications Current Medications Ondansetron HCl (Zofran Inj) 4 mg Q6H PRN IV NAUSEA AND/OR VOMITING; Start at 16:00 Acetaminophen (Tylenol Tab) 650 mg Q6H PRN PO PAIN LEVEL 1-3 OR FEVER; Start at 16:00 Acetaminophen (Tylenol Supp) 650 mg Q6H PRN [place] PAIN LEVEL 1-3 OR FEVER; Start 08/28/16 at 16:00 Acetaminophen/ Hydrocodone Bitart ([place] (5/325)) 1 tab Q6H PRN PO MODERATE PAIN LEVEL 4-6 Last administered on 08/29/16t 20:30; Admin Dose 1 TAB; Start at 16:00 Acetaminophen/ Hydrocodone Bitart ([place] (5/325)) 2 tab Q6H PRN PO SEVERE PAIN LEVEL 7-10; Start 08/28/16 at 16:00 Morphine Sulfate (morphine) 2 mg Q4H PRN IV SEVERE PAIN LEVEL 7-10; Start 08/28 at 16:00 Docusate Sodium (Colace) 100 mg Q12H PRN PO CONSTIPATION; Start 08/28/16 at 16: 00 Magnesium Hydroxide (Milk Of Mag) 30 ml DAILY PRN PO CONSTIPATION; Start at 16:00 Bisacodyl (Dulcolax Supp) 10 mg DAILY PRN [place] CONSTIPATION; Start 08/28/16 at 16 :00 Famotidine (Pepcid) 20 mg Q12 PO Last administered on 08/31/16 08:36; Admin Dose 20 MG; Start 08/28/16 at 21:00 Prednisone (Prednisone) 5 mg DAILY PO Last administered on 08/31/16 08:36; Admin Dose 5 MG; Start 08/29/16 at 09:00 Tacrolimus 1 mg 1 mg Q12 PO Last administered on 08/31/16 08:36; Admin Dose 1 MG; Start 08/28/16 at 21:00 Ceftriaxone Sodium 50 ml @ 100 mls/hr Q24H IVPB Last administered on 20:13; Admin Dose 100 MLS/HR; Start 08/29/16 at 20:00 Vancomycin HCl/ Sodium Chloride (Vancocin/NS) 250 ml @ 83.333 mls/ hr Q12H IVPB Last administered on 08/31/16 08:35; Admin Dose 83.333 MLS/HR; Start at 08:00 MUKUND DORSEY Aug 31, 2016 15:05
--- NOTE | 2016-08-31 17:20 | CONS ---
Date/Time of Note Date/Time of Note DATE: 08/31/16 TIME: 17:15 Assessment/Plan Assessment/Plan Chief Complaint/Hosp Course SUBJECTIVE: The patient is alert, in no distress. No fevers/n/v/d/dysuria MICROBIOLOGY: Blood cultures negative. Urine culture + GNR Stool for C diff negative. ANTIMICROBIALS 1. Rocephin IV. 2. Vancomycin. PHYSICAL EXAMINATION GENERAL: Well-developed, ill-appearing, middle-aged woman who is alert, in no distress. HEENT: Head atraumatic, normocephalic. Sclerae are anicteric. Buccal mucosa pink. NECK: Supple, trachea midline. CHEST: Rise symmetrical. Breath sounds clear, L chest wound packed, looks clean. HEART: S1, S2. ABDOMEN: Soft, bowel tones present. EXTREMITIES: Without cyanosis. ASSESSMENT 1. Left upper chest Port-A-Cath site cellulitis==> s/p removed. 2. Breast cancer diagnosed in June 2016. 3. History of systemic lupus erythematous. 4. Status post chemotherapy, possibly requiring more. 5. GNR UTI PLAN: The patient remains stable. Portacath site looks clean, bld cx negative, urine cx cw contaminant, will change abx to PO Bactrim, hold off new portacath placement until next chemo cycle DW Dr Rebolledo Problems: Consultation Date/Type/Reason Admit Date/Time Aug 28, 2016 at 14:29 Type of Consultation: ID Exam/Review of Systems Vital Signs Vitals Vital Signs Date Time Temp Pulse Resp B/P Pulse Ox O2 Delivery O2 Flow Rate FiO2 08/31/16 07:34 97.6 78 20 100/54 100 08/29/16 23:42 Room Air 08/28/16 12:45 2 Intake and Output 08/30/16 08/30/16 08/31/16 15:00 23:00 07:00 Intake Total 1510 ml 680 ml Balance 1510 ml 680 ml Results Result Diagram: 08/31/16 0510 08/31/16 0510 Results 24 hrs Laboratory Tests Test 08/31/16 05:10 Anion Gap 14 Basophils # 0.0 Basophils % 0.6 Blood Urea Nitrogen 9 Calcium Level 9.1 Carbon Dioxide Level 24 Chloride Level 109 Creatinine 0.58 Eosinophils # 0.0 Eosinophils % 0.7 Glucose Level 81 Hematocrit 29.2 L Hemoglobin 10.0 L Lymphocytes # 0.5 L Lymphocytes % 16.5 Mean Corpuscular Hemoglobin 29.8 Mean Corpuscular Hemoglobin Concent 34.3 Mean Corpuscular Volume 86.7 Mean Platelet Volume 7.7 Monocytes # 0.6 Monocytes % 19.2 H Neutrophils # 1.9 Neutrophils % 63.0 Nucleated Red Blood Cells # 0.0 Nucleated Red Blood Cells % 0.0 Platelet Count 385 Potassium Level 4.2 Red Blood Count 3.37 L Red Cell Distribution Width 13.3 Sodium Level 143 Vancomycin Level Trough 9.1 L White Blood Count 3.0 L Medications Medications Current Medications Ondansetron HCl (Zofran Inj) 4 mg Q6H PRN IV NAUSEA AND/OR VOMITING; Start at 16:00 Acetaminophen (Tylenol Tab) 650 mg Q6H PRN PO PAIN LEVEL 1-3 OR FEVER; Start at 16:00 Acetaminophen (Tylenol Supp) 650 mg Q6H PRN [place] PAIN LEVEL 1-3 OR FEVER; Start 08/28/16 at 16:00 Acetaminophen/ Hydrocodone Bitart ([place] (5/325)) 1 tab Q6H PRN PO MODERATE PAIN LEVEL 4-6 Last administered on 08/29/16 20:30; Admin Dose 1 TAB; Start at 16:00 Acetaminophen/ Hydrocodone Bitart ([place] (5/325)) 2 tab Q6H PRN PO SEVERE PAIN LEVEL 7-10; Start 08/28/16 at 16:00 Morphine Sulfate (morphine) 2 mg Q4H PRN IV SEVERE PAIN LEVEL 7-10; Start 08/28 at 16:00 Docusate Sodium (Colace) 100 mg Q12H PRN PO CONSTIPATION; Start 08/28/16 at 16: 00 Magnesium Hydroxide (Milk Of Mag) 30 ml DAILY PRN PO CONSTIPATION; Start at 16:00 Bisacodyl (Dulcolax Supp) 10 mg DAILY PRN [place] CONSTIPATION; Start 08/28/16 at 16 :00 Famotidine (Pepcid) 20 mg Q12 PO Last administered on 08/31/16 08:36; Admin Dose 20 MG; Start 08/28/16 at 21:00 Prednisone (Prednisone) 5 mg DAILY PO Last administered on 08/31/16 08:36; Admin Dose 5 MG; Start 08/29/16 at 09:00 Tacrolimus 1 mg 1 mg Q12 PO Last administered on 08/31/16 08:36; Admin Dose 1 MG; Start 08/28/16 at 21:00 Ceftriaxone Sodium 50 ml @ 100 mls/hr Q24H IVPB Last administered on 20:13; Admin Dose 100 MLS/HR; Start 08/29/16 at 20:00 Vancomycin HCl/ Sodium Chloride (Vancocin/NS) 250 ml @ 83.333 mls/ hr Q12H IVPB Last administered on 08/31/16 08:35; Admin Dose 83.333 MLS/HR; Start at 08:00 MARLON PETERS NP Aug 31, 2016 17:20
[2016-08-31 20:19] VITALS: BP 111/69; RESP 16
[2016-08-31] MEDS: TRIMETHOPRIM/SULFAMETHOX (DS) TAB PO SCH (20:40)
[2016-09-01 07:37] VITALS: BP 121/64; RESP 20
[2016-09-01 08:31] LABS: BASOPHILS % 0.7 % (0.0-2.0); HEMATOCRIT 30.4 % (37.0-47.0); HEMOGLOBIN 10.3 g/dl (12.0-16.0); LYMPHOCYTES # 0.6 10^3/ul (0.8-2.9); LYMPHOCYTES % 18.5 % (15.0-51.0); MEAN CORPUSCULAR HEMOGLOBIN 29.6 pg (29.0-33.0); MEAN CORPUSCULAR VOLUME 87.1 fl (82.0-101.0); MEAN PLATELET VOLUME 7.6 fl (7.4-10.4); MONOCYTE # 0.6 10^3/ul (0.3-0.9); MONOCYTES % 19.6 % (0.0-11.0); NEUTROPHIL # 1.9 10^3/ul (1.6-7.5); NEUTROPHILS % 60.2 % (39.0-77.0); PLATELET COUNT 386 10^3/UL (140-440); RED BLOOD COUNT 3.49 10^6/ul (4.20-5.40); RED CELL DISTRIBUTION WIDTH 13.3 % (11.5-14.5); UNCORRECTED WBC 3.2 10^3/ul (4.8-10.8); WHITE BLOOD COUNT 3.2 10^3/ul (4.8-10.8)
[2016-09-01 08:32] LABS: CREATININE 0.63 mg/dl (0.44-1.00)
[2016-09-01 08:33] LABS: CALCIUM 9.2 mg/dl (8.4-10.2)
[2016-09-01 08:38] LABS: CONDITION 1; LH ANALYZER COMMENTS 1
--- NOTE | 2016-09-01 09:58 | PN ---
Date/Time of Note Date/Time of Note DATE: 09/01/16 TIME: 09:56 Assessment/Plan VTE Prophylaxis VTE Prophylaxis Intervention: SCD's Lines/Catheters [facility] Saline Lock Urinary Cath still in place: No Assessment/Plan Chief Complaint/Hosp Course Assessment and plan 1. Infected left subclavian Port-A-Cath. Wound care nurse to follow.. Radiology has been made aware. Continue antibiotics per ID. Plan for port-a- cath placement today 2. History of breast cancer. Patient does report she follows up with Dr. Villalobos as outpatient. Patient reports after next chemotherapy session on patient to follow up with outpatient oncologist. 3. History of lupus. The patient does report that she follows up with a nurse technician, Dr. Glass as outpatient. No active issue at this time. Will resume her prednisone. 4. Deep venous thrombosis prophylaxis: SCDs. 5. UTI. Patient did have gram variable rods seen. Await final cultures. Continue with ID recommendations Disposition and plan: Discussed with ID. will plan for port-a-cath placement today Discussed plan of care with Dr. Orozco Problems: Subjective 24 Hr Interval Summary Free Text/Dictation comfortable at present. no s/s of distress Exam/Review of Systems Vital Signs Vitals Vital Signs Date Time Temp Pulse Resp B/P Pulse Ox O2 Delivery O2 Flow Rate FiO2 09/01/16 07:37 98.0 89 20 121/64 99 08/29/16 23:42 Room Air 08/28/16 12:45 2 Intake and Output 08/31/16 08/31/16 09/01/16 15:00 23:00 07:00 Intake Total 250 ml 1320 ml 880 ml Output Total 2350 ml Balance 250 ml -1030 ml 880 ml Exam General: No acute signs or symptoms of distress Eyes: pupils equal round, Anicteric sclera Neck: Supple nontender, no JVD Cardiac: S1, S2 auscultated, regular rhythm and rate Pulmonary: No coarse rhonchi or breathing auscultated GI: Abdomen soft nontender nondistended, bowel sounds active Extremities: No edema bilateral lower extremities Skin: Left upper chest wound clean dry and intact Neurologic: Alert to person place and time and situation Results Result Diagram: 09/01/16 0749 09/01/16 0749 Results 24 hrs Laboratory Tests Test 09/01/16 07:49 Anion Gap 15 Basophils # 0.0 Basophils % 0.7 Blood Urea Nitrogen 11 Calcium Level 9.2 Carbon Dioxide Level 26 Chloride Level 106 Creatinine 0.63 Eosinophils # 0.0 Eosinophils % 1.0 Glucose Level 88 Hematocrit 30.4 L Hemoglobin 10.3 L Lymphocytes # 0.6 L Lymphocytes % 18.5 Mean Corpuscular Hemoglobin 29.6 Mean Corpuscular Hemoglobin Concent 34.0 Mean Corpuscular Volume 87.1 Mean Platelet Volume 7.6 Monocytes # 0.6 Monocytes % 19.6 H Neutrophils # 1.9 Neutrophils % 60.2 Nucleated Red Blood Cells # 0.0 Nucleated Red Blood Cells % 0.0 Platelet Count 386 Potassium Level 4.0 Red Blood Count 3.49 L Red Cell Distribution Width 13.3 Sodium Level 143 White Blood Count 3.2 L Medications Medications Current Medications Ondansetron HCl (Zofran Inj) 4 mg Q6H PRN IV NAUSEA AND/OR VOMITING; Start at 16:00 Acetaminophen (Tylenol Tab) 650 mg Q6H PRN PO PAIN LEVEL 1-3 OR FEVER; Start at 16:00 Acetaminophen (Tylenol Supp) 650 mg Q6H PRN [place] PAIN LEVEL 1-3 OR FEVER; Start 08/28/16 at 16:00 Acetaminophen/ Hydrocodone Bitart ([place] (5/325)) 1 tab Q6H PRN PO MODERATE PAIN LEVEL 4-6 Last administered on 08/29/16 20:30; Admin Dose 1 TAB; Start at 16:00 Acetaminophen/ Hydrocodone Bitart ([place] (5/325)) 2 tab Q6H PRN PO SEVERE PAIN LEVEL 7-10; Start 08/28/16 at 16:00 Morphine Sulfate (morphine) 2 mg Q4H PRN IV SEVERE PAIN LEVEL 7-10 Last administered on 08/31/16 20:41; Admin Dose 2 MG; Start 08/28/16 at 16:00 Docusate Sodium (Colace) 100 mg Q12H PRN PO CONSTIPATION; Start 08/28/16 at 16: 00 Magnesium Hydroxide (Milk Of Mag) 30 ml DAILY PRN PO CONSTIPATION; Start at 16:00 Bisacodyl (Dulcolax Supp) 10 mg DAILY PRN [place] CONSTIPATION; Start 08/28/16 at 16 :00 Famotidine (Pepcid) 20 mg Q12 PO Last administered on 08/31/16 20:40; Admin Dose 20 MG; Start 08/28/16 at 21:00 Prednisone (Prednisone) 5 mg DAILY PO Last administered on 08/31/16 08:36; Admin Dose 5 MG; Start 08/29/16 at 09:00 Tacrolimus (Prograf) 1 mg Q12 PO Last administered on 08/31/16 20:40; Admin Dose 1 MG; Start 08/28/16 at 21:00 Trimethoprim/ Sulfamethoxazole (Bactrim (Ds)) 1 tab BID PO Last administered on 08/31/16 20:40; Admin Dose 1 TAB; Start 08/31/16 at 21:00 MUKUND DORSEY Sep 01, 2016 09:58
[2016-09-01] MEDS ORDERED: HYDR-906 PO (10:05)
[2016-09-01] MEDS ORDERED: BACTDS PO (10:05)
[2016-09-01] MEDS: FAMOTIDINE 20 MG TAB PO SCH ×2 (10:29→20:16)
[2016-09-01] MEDS: TRIMETHOPRIM/SULFAMETHOX (DS) TAB PO SCH ×2 (10:29→20:16)
[2016-09-01] MEDS: predniSONE 5 MG TAB PO SCH (10:29)
[2016-09-01] MEDS: TACROLIMUS 1 MG CAP PO SCH ×2 (10:30→20:16)
--- NOTE | 2016-09-01 15:47 | PN ---
DATE: 09/01/2016 SUBJECTIVE: No acute changes. Patient is alert, sitting up in bed, still looks comfortable. Denie s pain, no fevers. WBC today 3.2, no shift, no bands. BUN 11, creatinine 0.63. MICROBIOLOGY: Blood cultures since admission negative. Wound culture negative. Urine culture grew Gardnerella vaginalis, consistent with contaminant. ANTIMICROBIALS: The patient is on oral Bactrim. PHYSICAL EXAMINATION: GENERAL: This is well-developed, middle-aged woman who is alert, in no distress. HEENT: Head atraumatic, normocephalic. Sclerae anicteric. Buccal mucosa pink. NECK: Supple. CHEST: Rise symmetrical. Left chest dressing intact. Breath sounds clear. HEART: S1, S2. ABDOMEN: Soft, bowel tones present. EXTREMITIES: Without cyanosis. ASSESSMENT: 1. Left chest cellulitis at the Port-A-Cath site, status post Port-A-Cath removed on 08/29/2016. So far, cultures have been negative. 2. History of breast cancer in chemotherapy. 3. History of systemic lupus erythematosus. PLAN: The patient remains stable. We will continue her on Bactrim. The patient will require new P ort-A-Cath which she is cleared for but preferably not on the same side where she has an open wound. Dictated By: MARLON PETERS PLATING EQUIPMENT TENDER for [employer] MCCORMACK/ANTWON Conf#: [id number] DID#: [id number]
[2016-09-01] MEDS ORDERED: IODIXANOL LOCM 50 ML BTL ONE (16:26)
[2016-09-01] MEDS ORDERED: LIDOCAINE 1% (MDV) 20 ML INJ ONE (16:26)
[2016-09-01] MEDS ORDERED: HEPARIN 1000 UNITS/NS (A-LINE) 1,000 ML ONE (16:27)
[2016-09-01] MEDS ORDERED: MIDAZOLAM 1 MG/ML 2 ML INJ ONE (16:27)
[2016-09-01] MEDS ORDERED: FENTAnyl 50 MCG/ML VIAL ONE (16:27)
[2016-09-01] MEDS ORDERED: POLYMYXIN/BACITRACIN 1L IRRIG ONE (17:02)
--- NOTE | 2016-09-01 18:27 | RADRPT ---
PROCEDURE: FLUOROSCOPIC AND ULTRASONOGRAPHIC-GUIDED PLACEMENT OF RIGHT CHEST PORT. CLINICAL INDICATION: Right breast cancer. Venous access for chemotherapy. The the patient previou sly had a left sided Port-A-Cath which was infected and required removal. TECHNIQUE: INTRAPROCEDURE MEDICATIONS: PB antibiotic solution 40 cc applied topically. 1 gram Ancef intravenous ly, intra-op. IV Versed and Fentanyl per protocol. Informed consent was obtained. The procedure, risks, benefits, complications and alternatives were explained to the patient. Risks including bleeding, infection, and pneumothorax were explained. The patient understood and was willing to proceed. A procedural pause was performed. The patient's name, date of , and procedure to be performed w ere verified. The central line was inserted with all elements of maximal sterile barrier technique. All of the fol lowing were used: head covering, facial mask, sterile gown, sterile gloves, a large sterile sheet, h and hygiene, and 2% chlorhexidine for cutaneous antisepsis. The right neck and anterior/superior chest wall were prepped and draped in usual sterile fashion. Limited sonography of the right neck was then performed. Noted is a patent right internal jugular ve in. Following the local injection of 1% lidocaine, the right internal jugular vein was punctured under s onographic guidance with a 20-gauge needle through which a 0.018 inch floppy tip guidewire was advan tricia into the superior vena cava with fluoroscopic guidance. The tract was dilated to 5 British and the wire was then replaced with a 0.035 in Amplatz guidewire. Serial dilatation was then performed and a 7 British peel away sheath was introduced. A site just inferior to the clavicle in the superior anterior right chest wall was localized. One pe rcent lidocaine was used as local anesthesia. A transverse 2.5 cm incision was made utilizing a 15 b lade scalpel. Utilizing blunt dissection a subcutaneous pocket was created inferior to the incision. The cavity was flushed with approximately 40 cc of PB antibiotic solution. The catheter was tunneled underneath the skin from the newly created pocket to the puncture site in the neck. The central line catheter was pulled through the tract. The catheter was then advanced thr ough the sheath until the tip was positioned in the right atrium. The peel-away sheath was removed. The catheter was flushed and clamped. The 6.6 British catheter was then connected to the Angiodynamics power port. The port was then placed into the pocket. Prior to closing the instrument and sponge count was verified and was correct. The subcutaneous tissue was closed with 3-0 Vicryl interrupted suture. The skin at the site of the pock et and in the neck was closed with 4-0 Vicryl suture in a running subcuticular technique. The port w as flushed with 2500 units of heparin in 2.5 cc utilizing a Burton needle. The needle was removed. A dressing was applied. The patient tolerated procedure well. COMPARISON: None. FINDINGS: Ultrasound images were recorded and stored in the patient's medical record. Final radiographic images demonstrate the tip of the catheter in the upper right atrium. A total of 0.3 minutes of fluoroscopy time was used. The ultrasound images demonstrate the needle entering th e internal jugular vein. IMPRESSION: 1. Successful ultrasonographic and fluoroscopic guided placement of right chest power port. RPTAT: QQ .Gustavo Brewster MD, MD Date Time Electronically viewed and signed by .Gustavo Brewster MD, on 09/01/2016 18:27 .R/
[2016-09-01] MEDS: HYDROCODONE/APAP (5/325) TAB PO PRN (20:20)
[2016-09-01 20:27] VITALS: BP 112/62; RESP 18
[2016-09-02] MEDS: HYDROCODONE/APAP (5/325) TAB PO PRN (04:39)
[2016-09-02 07:16] LABS: BASOPHILS % 0.5 % (0.0-2.0); EOSINOPHILS % 1.1 % (0.0-7.0); HEMOGLOBIN 10.7 g/dl (12.0-16.0); LYMPHOCYTES # 0.5 10^3/ul (0.8-2.9); LYMPHOCYTES % 12.7 % (15.0-51.0); MEAN CORPUSCULAR HEMOGLOBIN 29.8 pg (29.0-33.0); MEAN CORPUSCULAR HGB CONC 34.3 g/dl (32.0-37.0); MEAN CORPUSCULAR VOLUME 86.8 fl (82.0-101.0); MEAN PLATELET VOLUME 7.4 fl (7.4-10.4); MONOCYTE # 0.6 10^3/ul (0.3-0.9); MONOCYTES % 16.4 % (0.0-11.0); NEUTROPHIL # 2.6 10^3/ul (1.6-7.5); NEUTROPHILS % 69.3 % (39.0-77.0); PLATELET COUNT 406 10^3/UL (140-440); RED BLOOD COUNT 3.57 10^6/ul (4.20-5.40); UNCORRECTED WBC 3.7 10^3/ul (4.8-10.8); WHITE BLOOD COUNT 3.7 10^3/ul (4.8-10.8)
[2016-09-02 07:20] LABS: CONDITION 1; LH ANALYZER COMMENTS 1
[2016-09-02 07:26] LABS: CREATININE 0.7 mg/dl (0.44-1.00)
[2016-09-02 07:27] LABS: CALCIUM 9.3 mg/dl (8.4-10.2)
[2016-09-02 07:39] VITALS: BP 100/52; RESP 16
--- NOTE | 2016-09-02 08:22 | PDOCDIS ---
Discharge Instructions DIAGNOSIS Discharge Diagnosis: 1. infected port-a-cath site 2. hx right breast CA CONDITION Patient Condition: Stable HOME CARE INSTRUCTIONS: Special Diet: regular FOLLOW UP/APPOINTMENTS Appointments 1. Follow up with your primary care provider in one week OTHER ORDERS: Other Orders: Wound Care: loosely pack wound with 1/2" iodoform and cover with dry dressing. Change daily. MUKUND DORSEY Sep 02, 2016 08:22
[2016-09-02] MEDS: TRIMETHOPRIM/SULFAMETHOX (DS) TAB PO SCH (08:32)
[2016-09-02] MEDS: predniSONE 5 MG TAB PO SCH (08:33)
[2016-09-02] MEDS: FAMOTIDINE 20 MG TAB PO SCH (08:33)
[2016-09-02] MEDS: TACROLIMUS 1 MG CAP PO SCH (08:33)
--- NOTE | 2016-09-03 16:56 | DS ---
DATE OF ADMISSION: 08/28/2016 DATE OF DISCHARGE: 09/02/2016 CONSULTANTS: 1. Elizabeth Duran, nurse practitioner. 2. Dr. Jaison Rebolledo. DISCHARGE DIAGNOSES: 1. Infected left subclavian Port-A-Cath. 2. History of right breast cancer. 3. History of lupus. 4. Deep venous thrombosis. 5. Urinary tract infection with Gardnerella vaginosis HOSPITAL COURSE: This is a 41-year-old female with a history of right breast cancer diagnosed in 2014, who was on chemotherapy and came to [facility] due to left-sided ches t Port-A-Cath infection. The patient did notice some erythema and swelling on left upper chest 2 we eks ago. On the day of her admission, she noticed a hole with drainage of pus. She was subsequentl y admitted to [facility]. She was seen by infectious disease physician who did pl david her on appropriate antibiotic regimen. We did have Port-A-Cath removed and we did provide her w ith line holiday initially. After patient was cleared by ID, we did have the patient placed with an other Port-A-Cath line on the right upper chest for which she did tolerate the procedure well. She was cleared by Radiology for use of that Port-A-Cath site. She was otherwise optimized medically. We resumed her on her home medications. She was instructed to follow up with her chemotherapy with Dr. Villalobos on 09/02/2016 on the day of discharge. The plan of care was discussed with patient a nd patient did verbalize her understanding. On the day of discharge, the patient was in stable cond ition. DISCHARGE PHYSICAL EXAMINATION: VITAL SIGNS: Stable. CONDITION: Stable. DISCHARGE PLAN 1. Diet regular. 2. Patient to follow up with primary care provider within a week. 3. Wound care is to repack wound with half-inch iodoform and cover with dry dressing, changes daily . DISCHARGE MEDICATIONS: 1. [place] 5/325 one tab p.o. q.4h. 2. Bactrim-DS 1 tab p.o. b.i.d. for 14 days. 3. Prednisone 5 mg p.o. daily. 4. Prograf 1 mg p.o. b.i.d. DISCHARGE PROCESS TIME: 40 minutes. Discussed plan of care with Dr. Orozco. Dictated By: MUKUND DORSEY ENDOSCOPY TECHNICIAN for WAGNER REED MD RR/ANTWON Conf#: [id number] DID#: [id number]
== END 2016-09-02 09:40 | disposition home or self-care (01) | DRG 287 ==
LOC: E/R 12:14 → MS2 14:29
PROVIDERS: ADMIT Internal Medicine; ATTEND Internal Medicine
PROC: 0JPT3XZ Removal of Tunneled Vascular Access Device from Trunk Subcutaneous Tissue and Fascia, Percutaneous Approach (ICD-10-PCS; 2016-08-29)
PROC: 0JH60XZ Insertion of Tunneled Vascular Access Device into Chest Subcutaneous Tissue and Fascia, Open Approach (ICD-10-PCS; principal; 2016-09-01)
PROC: B2141ZZ Fluoroscopy of Right Heart using Low Osmolar Contrast (ICD-10-PCS; 2016-09-01)
PROC: 02H633Z Insertion of Infusion Device into Right Atrium, Percutaneous Approach (ICD-10-PCS; 2016-09-01)
PROC: B543ZZA Ultrasonography of Right Jugular Veins, Guidance (ICD-10-PCS; 2016-09-01)
DX: T80.212A Local infection due to central venous catheter, initial encounter (principal); M32.9 Systemic lupus erythematosus, unspecified; D70.9 Neutropenia, unspecified; N39.0 Urinary tract infection, site not specified; C50.911 Malignant neoplasm of unspecified site of right female breast; L03.313 Cellulitis of chest wall; D64.9 Anemia, unspecified; B96.89 Other specified bacterial agents as the cause of diseases classified elsewhere; Z80.3 Family history of malignant neoplasm of breast; Y83.8 Other surgical procedures as the cause of abnormal reaction of the patient, or of later complication, without mention of misadventure at the time of the procedure
CPT/HCPCS: 36415; 71010; 77001; 80048; 80053; 80061; 80202; 81001; 81003; 83036; 83605; 83735; 84100; 84436; 84443; 84479; 84484; 85025; 85610; 85730; 87040; 87045; 87070; 87075; 87086; 93005; 96374; 96375; C1788; J1644; J2250; J2270; J3010; J3370; J7030; J7050; J7507; J7512; Q9967

== ENCOUNTER 2016-09-08 15:22 | Outpatient (CLI) | payer OTHER ==
[~2016-09-08] VITALS: Ht 162.6 cm; Wt 77.7 kg
[~2016-09-08 15:22] MED LIST changes: +BACTDS PO; +HYDR-906 PO; -LISI20TA11 PO; -POTA20TA96 PO
--- NOTE | 2016-09-08 15:31 | PN ---
Date/Time of Note Date/Time of Note DATE: 09/08/16 TIME: 15:31 Outpatient Progress Note Chief Complaint Port-A-Cath infection/Lupus/C a breast/DVT/UTI HPI Port-A-Cath infection/patient reported infection, patient Port-A-Cath removed still has a hole, no bleeding discharge,, on the left side of the chest wall, patient is new Port-A-Cath in right side of the chest wall, Lupus/joint pain, slight discomfort, patient on medication, CA breast/patient has a breast, no pain or discharge, no axillary swelling, DVT/history of DVT, no pain, no cough expectoration hemoptysis, UTI/patient had UTI, patient on antibiotic, patient doing better, no frequency urgency or burning, Review of Systems Const: No Fever, no chills, no Wt. loss, no Fatigue, normal appetite, no diaphoresis. Eyes: No pain, no discharge, no redness, no visual change, no foreign body. ENT: No pain, no bleeding, no congestion, no sore throat, no dysphagia, no discharge or rhinitis. Lymph: No adenopathy, no tender nodes, no lymphedema. Resp: No SOB, no cough, no sputum, no wheezing, no chest pain. CV: No chest pain, no palpitaions, no LEUNG, no PND, no edema. GI: Normal appetite, no pain, no nausea, no vomiting, no diarrhea, no blood, no constipation. : No frequency, no urgency, no dysuria, no hematuria, no flank pain, no discharge, no bleeding. Musc: No bone/joint pain, no back pain, no neck pain, no knee pain, no restricted ROM. Skin: No rash, no skin lesions, no erythema, no laceration, no bruising, no pruritus. Patient has a Port-A-Cath removal: On the left side of the chest wall , no bleeding discharge or redness, Right side of the chest wall Port-A-Cath clean, Neuro: No LIMA, no dizziness, no syncope, no seizure, no focal-weakness. Endo: No polyuria, no polydypsia, no dry-skin, no temp-intolerance. Psych: No hallucinations, no depression, no anxiety, no suicidal ideation. Ext: No edema, no pain, no ulcer, no weakness. Physical Exam General Appearance: A 41 year-old female who appears well-developed, well- nourished, in no acute distress. HEENT: Head normocephalic, atraumatic. Pupils equal, round, reactive to light and accommodate. Sclerae are no jaundice. Nasal turbinates pink without erythema or nasal discharge. Mucous membranes pink and moist without lesions. Oropharynx clear without any exudate or discharge. NECK: Supple. Trachea midline, No thyromegaly, No cervical lymphadenopathy, No mass, No carotid bruits, No JVD, Carotid pulses 2+ bilaterally. PULMONARY: Clear to auscultaion bilaterally, No retractions, Chest expansion symmetric bilaterally, no rales, no ronchi, no dulness on percussion. CARDIAC: Normal SI and S2, Regular rate and rythm, no murmur, gallop, or rub. GASTROINTESTINAL: Abdomen is soft, non-tender, Non Rigid, No distention, Positive bowel sounds x4 quadrants, Liver normal. SKIN: Warm, dry, no rash, no bruise, no echmosis. Patient has a Port-A-Cath opening on the left side of the chest wall, EXTREMITIES: Bilateral lower extremities normal, no edema, no phlabitus, pulse palpable, no contracture. MUSCULOSKELETAL: Spine Normal, Non-tender, Normal range of motion, No swelling, no deformity, no clubbing, or cyanosis, the patient has no edema to bilateral lower extremities, dorsalis pedis pulses palpable bilaterally. NEUROLOGIC: The patient is awake, alert, oriented, responding to yes/no questions appropriately, moving all extremities, cranial nerve intact, normal strenght, normal power, normal coordination, normal gait. Allergies Coded Allergies: No Known Allergy (Unverified , 07/15/16) PMH Lupus/Port-A-Cath infection/Ca breast/DVT/UTI Social Hx No smoking or drinking, no drugs, Family Hx Mother had CA breast, Assessment/Plan Impression Port-A-Cath infection/Lupus/CA breast/DVT/UTI next Plan Patient education done about the patient's disease,, patient advised to continue antibiotic Patient encouraged to follow with the primary care physician, Patient has all her medication, including antibody, patient to continue antibiotic, Patient to follow with the primary care physician in few days, Local cleanliness at the site of left chest wall where Port-A-Cath was removed, If patient has a fever to call immediately,, Medications Home Meds Active Scripts Sulfamethoxazole-Trimethoprim* (Bactrim* DS) 800-160 Mg Tab, 1 TAB PO BID for 14 Days, TAB Prov:MUKUND DORSEY 09/01/16 Hydrocodone/Acetaminophen ([place] 5-325 Tablet) 1 Each Tablet, 1 EACH PO Q4 Y for PAIN, #30 TAB Prov:MUKUND DORSEY 09/01/16 Reported Medications Tacrolimus* (Prograf*) 1 Mg Capsule, 1 MG PO Q12, CAP 07/15/16 Prednisone* (Prednisone*) 5 Mg Tab, 5 MG PO DAILY, TAB 07/15/16 Discontinued Reported Medications Cephalexin* (Cephalexin*) 750 Mg Capsule, 750 MG PO BID for 10 Days, #21 CAP 08/28/16 Potassium Chloride* (Potassium Chloride*) 20 Meq Tablet.er, 40 MEQ PO DAILY, TAB.SA 07/15/16 ASHLEIGH AVENDAÑO MD Sep 08, 2016 15:31
[2016-09-08 15:34] VITALS: Ht 162.6 cm; Wt 77.7 kg
[2016-09-08 15:35] VITALS: BP 118/71; PULSE 94; RESP 16
== END 2016-09-08 16:43 | disposition home or self-care (01) ==
LOC: DCC 15:22
PROVIDERS: ATTEND Internal Medicine
DX: T80.219D Unspecified infection due to central venous catheter, subsequent encounter (principal); M32.9 Systemic lupus erythematosus, unspecified; C50.919 Malignant neoplasm of unspecified site of unspecified female breast; I82.409 Acute embolism and thrombosis of unspecified deep veins of unspecified lower extremity; N39.0 Urinary tract infection, site not specified
CPT/HCPCS: G0463

== ENCOUNTER 2016-11-30 07:15 | Day surgery (SDC) | payer OTHER ==
[~2016-11-30] VITALS: Ht 160 cm; Wt 69.3 kg
[2016-11-30] VITALS (22 sets, daily range): BP systolic 100–121; BP diastolic 55–76; PULSE 71–87; RESP 15–27; Ht 160 cm; Wt 69.3 kg
[~2016-11-30 07:15] MED LIST changes: +CEFAZOLIN 2 GM/50 ML (PMX) 50 ML IVPB SCH; +SOD CHLORIDE 0.9% 1,000 ML IV SCH
[2016-11-30] MEDS ORDERED: ROCURONIUM 50 MG INJ ONE (09:07)
[2016-11-30] MEDS ORDERED: PROPOFOL 20 ML ONE (09:07)
[2016-11-30] MEDS ORDERED: LIDOCAINE 1% (MDV) 20 ML INJ ONE (09:08)
[2016-11-30] MEDS ORDERED: MIDAZOLAM 1 MG/ML 2 ML INJ ONE (09:08)
[2016-11-30] MEDS ORDERED: DOCU100C PO (09:13)
[2016-11-30] MEDS ORDERED: GABA300C16 PO (09:13)
[2016-11-30] MEDS ORDERED: MAGN400T27 PO (09:13)
[2016-11-30] MEDS ORDERED: BUME1TAB18 PO (09:13)
[2016-11-30] MEDS ORDERED: VIT D3 (09:13)
[2016-11-30] MEDS ORDERED: HYDR200T39 PO (09:13)
[2016-11-30] MEDS ORDERED: POTASSIUM CL (09:13)
[2016-11-30 09:25] LABS: ADD SCAN DIFF NO
[2016-11-30 09:30] LABS: POTASSIUM 3.2 mmol/L (3.5-5.1)
[2016-11-30 09:40] LABS: CALCIUM 9.5 mg/dl (8.4-10.2); CREATININE 0.51 mg/dl (0.44-1.00); INR 0.98
[2016-11-30 09:41] LABS: PARTIAL THROMBOPLASTIN TIME 27.1 Sec (25.0-35.0)
[2016-11-30] MEDS ORDERED: DEXAMETHASONE 4 MG/ML 1 ML INJ ONE (10:01)
[2016-11-30] MEDS ORDERED: ONDANSETRON 4 MG INJ ONE (10:01)
[2016-11-30] MEDS ORDERED: FAMOTIDINE 20 MG INJ ONE (10:01)
[2016-11-30] MEDS ORDERED: CEFAZOLIN 1 GM INJ ONE (10:03)
[2016-11-30 10:10] LABS: ABNORMAL IP MESSAGE 1; HEMATOCRIT 32.3 % (37.0-47.0); HEMOGLOBIN 10.8 g/dl (12.0-16.0); MEAN CORPUSCULAR HEMOGLOBIN 31.5 pg (29.0-33.0); MEAN CORPUSCULAR HGB CONC 33.4 g/dl (32.0-37.0); MEAN CORPUSCULAR VOLUME 94.2 fl (82.0-101.0); MEAN PLATELET VOLUME 10.6 fl (7.4-10.4); PLATELET COUNT 196 10^3/UL (140-415); RED BLOOD COUNT 3.43 10^6/ul (4.20-5.40); RED CELL DISTRIBUTION WIDTH 15.8 % (11.5-14.5)
[2016-11-30] MEDS: D5W-0.45 NACL + KCL 20 MEQ 1,000 ML IV SCH ×3 (11:01→19:44)
[2016-11-30] MEDS ORDERED: HYDROmorphONE (0.2 MG/ML) 10ML SYG IV ONE (11:24)
[2016-11-30] MEDS ORDERED: ACETAMINOPHEN 1000MG/100ML IV 100 ML IVPB PRN (11:30)
[2016-11-30] MEDS ORDERED: HYDROmorphONE (0.2 MG/ML) 10ML SYG IV PRN (11:30)
[2016-11-30] MEDS ORDERED: ONDANSETRON 4 MG INJ IV PRN (11:30)
[2016-11-30] MEDS ORDERED: MEPERIDINE 25 MG INJ IV PRN (11:30)
[2016-11-30] MEDS: HYDROmorphONE (0.2 MG/ML) 10ML SYG IV PRN ×2 (11:35→11:55)
--- NOTE | 2016-11-30 12:18 | OPR ---
DATE OF OPERATION: 11/30/2016 PREOPERATIVE DIAGNOSIS: Locally advanced right breast cancer. POSTOPERATIVE DIAGNOSIS: Locally advanced right breast cancer. OPERATION PERFORMED: Right modified radical mastectomy. ANESTHESIA: General. ANESTHESIOLOGIST: Dr. Ellison. . SURGEON: Hermelindo Juan MD EPIDEMIOLOGIST: Bharat Schroeder MD INDICATIONS FOR PROCEDURE: The patient is a very unfortunate 41-year-old female who presented with a locally advanced right breast cancer at least 5 cm in size and evidence of multi-centricity, as th ere was a suspicious lesion at both the 1 o'clock and 6 o'clock location. There is also radiographi c evidence of probable axillary metastasis. She was treated with neoadjuvant chemotherapy by attend [facility] medical oncologist, Dr. Song Villalobos. Subsequently, she was counseled as to the need for ri ght modified radical mastectomy. She consented and was scheduled for surgery. DESCRIPTION OF PROCEDURE: The patient was brought to the operating theater, placed under general en dotracheal tube anesthesia. The right breast and axillary region was prepped and draped in usual st erile fashion. Planned elliptical incision was demarcated with marking pen widely around the nipple areolar complex. It was then carried out with a #10 blade scalpel. Subcutaneous tissue was dissec kenyatta with cautery. Allis-Naper clamps were then used to elevate the skin edges and skin flaps were c reated using cautery, first superiorly to the clavicle, then medially to the sternal border, inferio rly to the inframammary fold and then laterally until latissimus dorsi muscle was identified through out its course. Mastectomy then took place from medial to lateral using cautery. At the border of the pectoralis major muscle, the pectoralis minor muscle was identified. The clavipectoral fascia was incised with blunt dissection along the chest wall. The long thoracic nerve was identified and kept out of harm's way. More superiorly, the axillary vein and thoracodors al neurovascular bundle was identified and kept out of harm's way. Node bearing tissue between the long thoracic nerve and thoracodorsal nerve was then harvested using LigaSure device, taking care to attempt to preserve several intercostal brachial nerves. In this fashion, the level 1 and level 2 axillary contents were removed. The final connective tissue attachments to the latissimus dorsi wer e then transected with cautery. The specimen was oriented and sent for permanent pathologic analysi s. The wound was irrigated. Minimal bleeding was controlled with cautery. Two #10 flat Rafael-Pr att drains were then brought through the right mid axillary line, one was cut to size and laid withi n the axilla. The second was cut to size and laid over the pectoralis major muscle. Both drains we re secured in place with 2-0 nylon sutures in standard fashion. The skin was then reapproximated with skin tran. The patient tolerated the procedure well. The estimated blood loss was 100 mL. There were no complications and the patient was transported in sta ble condition to the recovery room where circumferential compression dressing was applied. Dictated By: HERMELINDO HIDALGO/ANTWON Conf#: [id number] DID#: [id number]
[2016-11-30] MEDS: morphine 2 MG INJ IV PRN (12:27)
--- NOTE | 2016-11-30 13:18 | HP ---
DATE OF ADMISSION: 11/30/2016 HISTORY OF PRESENT ILLNESS: The patient is a 41-year-old unfortunate female with history o f lupus that was diagnosed in 2008. 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 The patient was f ollowed by Dr. Villalobos and underwent chemotherapy. The patient was also evaluated by Dr. Drake moss general surgery consultation and patient was brought to the hospital and underwent right modified radical mastectomy for breast invasive cancer. Postoperative patient has experienced significant pa in and the patient will be admitted for further evaluation and management to medical/surgical floor. PAST MEDICAL HISTORY: Positive for lupus diagnosed in 2008. PAST SURGICAL HISTORY: Patient is status post right chest Port-A-Cath placement for chemotherapy, s tatus post . FAMILY HISTORY: Positive for a history of breast cancer in patient's mother. Her mother was diagno sed when she was 38 years old and diabetes mellitus in patient's grandmother. SOCIAL HISTORY: Patient lives with family. Patient denies any tobacco use. Denies any illicit mary jane g use. Denies any alcohol use. ALLERGIES: NO KNOWN ALLERGIES. HOME MEDICATIONS: Include: 1. Prednisone 5 mg p.o. daily. 2. Prograf 1 mg p.o. q.12h. 3. Mag-Oxide. 4. Hydrochloroquine sulfate 200 mg p.o. daily. 5. Gabapentin 300 mg p.o. b.i.d. 6. Colace. 7. Ranitidine. REVIEW OF SYSTEMS: A 12-point review of systems is negative unless what mentioned in the HPI. PHYSICAL EXAMINATION: GENERAL: Well-developed, well-nourished female currently is awake, alert. VITAL SIGNS: Temperature 97.7, pulse is 83, blood pressure 119/74, respiratory rate 16, oxygen satu ration 100% on 8 liters mask. HEENT: Head is atraumatic, normocephalic. Pupils equal, round, reactive to light and accommodation . Oral mucosa is pink and moist. NECK: Supple. No cervical lymphadenopathy, no thyromegaly. CHEST: Lungs clear bilaterally. There is no rhonchi, wheezes or rales noted. CARDIOVASCULAR: Normal S1, S2. No murmurs, gallops, clicks or rubs noted. CHEST: Status post surgery with dry, clean and intact dressing. ABDOMEN: Round, soft, nondistended, nontender. Bowel sounds present. No guarding, no rebound tend erness. EXTREMITIES: There is no edema, clubbing, cyanosis. Pulses equal bilaterally 2+. SKIN: There is no rash, petechiae noted. NEUROLOGIC: Patient is awake, alert and oriented x3, no focal deficits noted. Motor strength 5/5 i n all extremities. LABORATORY DATA: On admission, CBC: White blood cells 3.0, hemoglobin 10.8, hematocrit 32.3, plate lets 196. Chemistry: Sodium is 142, potassium 3.2, chloride 103, carbon dioxide 28, anion gap 14, BUN is 14, creatinine 0.51, glucose 93, calcium 9.5. PT 13, INR is 0.98. PTT is 27.1. ASSESSMENT/PLAN: 1. Invasive cancer from right breast status post right modified radical mastectomy by Dr. Juan. W e will continue Tylenol and morphine p.r.n. for pain, Zocor p.r.n. for nausea. Continue IV fluids a nd the patient received perioperative antibiotics. We will monitor electrolytes. 2. Lupus. Resume patient's prednisone, Plaquenil, and Prograf. She will continue sequential compr ession device for deep venous thrombosis prophylaxis and Pepcid for peptic ulcer disease prophylaxis , incentive spirometer q.1h. while patient is awake. Further recommendations based on clinical cou rse. Plan of care discussed with Dr. Rush. Dictated By: LAURA PIZARRO ADULT PROTECTIVE CASEWORKER for PILY RUSH MD SR/NTS Conf#: [id number] DID#: [id number]
[2016-11-30 14:01] LABS: EOSINOPHILS # 0.1 10^3/ul (0.0-0.5); LYMPHOCYTES # 0.8 10^3/ul (0.8-2.9); MONOCYTE # 0.4 10^3/ul (0.3-0.9); NEUTROPHIL # 1.6 10^3/ul (1.6-7.5)
[2016-11-30] MEDS: TACROLIMUS 1 MG CAP PO SCH (21:23)
[2016-11-30] MEDS: GABAPENTIN 300 MG CAP PO SCH (21:23)
[2016-11-30] MEDS: HYDROXYCHLOROQUINE 200 MG TAB PO SCH (21:23)
[2016-11-30] MEDS: BUMETANIDE 1 MG TAB PO SCH (21:53)
[2016-12-01 00:15] VITALS: BP 99/58; RESP 20
[2016-12-01] MEDS: D5W-0.45 NACL + KCL 20 MEQ 1,000 ML IV SCH ×3 (02:54→14:29)
[2016-12-01] MEDS: morphine 2 MG INJ IV PRN (05:09)
[2016-12-01 08:18] LABS: ADD SCAN DIFF NO
[2016-12-01 08:30] VITALS: BP 96/58; RESP 20
[2016-12-01 08:30] LABS: BASOPHILS % 0.2 % (0.0-2.0); EOSINOPHILS # 0.1 10^3/ul (0.0-0.5); EOSINOPHILS % 2.3 % (0.0-7.0); HEMATOCRIT 29.9 % (37.0-47.0); HEMOGLOBIN 9.8 g/dl (12.0-16.0); LYMPHOCYTES # 0.7 10^3/ul (0.8-2.9); LYMPHOCYTES % 16.7 % (15.0-51.0); MEAN CORPUSCULAR HEMOGLOBIN 30.9 pg (29.0-33.0); MEAN CORPUSCULAR HGB CONC 32.8 g/dl (32.0-37.0); MEAN CORPUSCULAR VOLUME 94.3 fl (82.0-101.0); MEAN PLATELET VOLUME 10.7 fl (7.4-10.4); MONOCYTE # 0.6 10^3/ul (0.3-0.9); MONOCYTES % 14.8 % (0.0-11.0); NEUTROPHIL # 2.8 10^3/ul (1.6-7.5); NEUTROPHILS % 65.1 % (39.0-77.0); PLATELET COUNT 199 10^3/UL (140-415); RED BLOOD COUNT 3.17 10^6/ul (4.20-5.40); RED CELL DISTRIBUTION WIDTH 15.7 % (11.5-14.5); WHITE BLOOD COUNT 4.3 10^3/ul (4.8-10.8)
[2016-12-01 08:39] LABS: POTASSIUM 3.2 mmol/L (3.5-5.1)
[2016-12-01 08:41] LABS: CREATININE 0.48 mg/dl (0.44-1.00)
[2016-12-01 08:42] LABS: CALCIUM 8.7 mg/dl (8.4-10.2)
[2016-12-01] MEDS: BUMETANIDE 1 MG TAB PO SCH (08:56)
[2016-12-01] MEDS: GABAPENTIN 300 MG CAP PO SCH (08:56)
[2016-12-01] MEDS: TACROLIMUS 1 MG CAP PO SCH (08:57)
[2016-12-01] MEDS: HYDROXYCHLOROQUINE 200 MG TAB PO SCH (08:57)
[2016-12-01] MEDS ORDERED: predniSONE 5 MG TAB PO SCH (09:00)
[2016-12-01] MEDS ORDERED: POTASSIUM CHLORIDE 20 MEQ POWDER FOR ORAL SOLN PO ONE (18:30)
--- NOTE | 2016-12-01 19:43 | PN ---
DATE: Postop day #1, status post right modified radical mastectomy for locally advanced right breast samuel marti SUBJECTIVE: Feels okay with some mild pain. OBJECTIVE: Vital signs now 98.1, 78, 20, 96/68 blood pressure and saturation 99% on room air. Kunal Miguel has drained 85 and 50 mL respectively in 24 hours. The dressing is intact. The patient h as been out of bed and walked around . ASSESSMENT AND PLAN: Status post right modified radical mastectomy, postoperative day #1. The jonathon ent is stable, no bleeding. The patient can be discharged home with Rafael-Kapoor drains. The nurs es are going to teach the patient how to empty the drain and how to record it. The patient to follo w up office and make an appointment for followup. Dictated By: DONNA CALDERÓN MD PS/ANTWON Conf#: [id number] DID#: [id number]
--- NOTE | 2016-12-01 22:03 | RADRPT ---
Vent Rate: 76 bpm RR Interval: 0 msec VA Interval: 214 msec QRS Duration: 82 msec QT Interval: 392 msec QTC Interval: 441 msec P-R-T [place]: 19 - 58 - 38 degrees Sinus rhythm with 1st degree AV block Non-specific St-T wave abnormalities Abnormal ECG Electronically Signed By: Miles Amaro [id number]
== END 2016-12-01 18:50 | disposition home or self-care (01) ==
LOC: SDS 07:15 → MS1 12:18 → SDS 12-01 18:50
PROVIDERS: ATTEND Surgery Surgical Oncology
DX: C50.911 Malignant neoplasm of unspecified site of right female breast (principal); C77.3 Secondary and unspecified malignant neoplasm of axilla and upper limb lymph nodes
CPT/HCPCS: 19307; 80048; 84703; 85025; 85610; 85730; 88307; 93005; J0690; J1100; J1170; J2250; J2270; J2405; J3010; J3480; J7507; J7512; Z7512; Z7610